=== PATIENT | female | born 1940 | race Caucasian/White ===

== ENCOUNTER 2017-01-31 13:07 | Emergency (ER) | payer MEDICARE, BC ==
--- NOTE | 2017-01-31 13:46 | EDM.PDOC ---
ED HPI GENERAL MEDICAL PROBLEM - General Chief Complaint: Gastrointestinal Problem Stated Complaint: Bowel issues Time Seen by Provider: 01/31/17 13:25 Source of Information: Reports: Patient, RN Notes Reviewed History Limitations: Reports: No Limitations - History of Present Illness INITIAL COMMENTS - FREE TEXT/NARRATIVE: 77 year old female presents to the ED with 1 week history of abdominal discomfort, bloating, and "bowel issues." She says she's been having trouble with constipation for the past week. She says it feels like it's hard to pass her stools. When she has a bowel movement, she describes it as "pencil like" and describes thin, skinny stool. The stool is brown in color. She denies bloody stools or black, tarry stools. She denies history of recurrent constipation. Her appetite is adequate but today she developed some mild nausea. No vomiting. No fever or chills. She feels bloated. She denies urinary symptoms but says she feels "pressure" on her bladder. She had a colonoscopy approximately 10 years ago and says it was normal. Abdominal Pain Score (Numeric/FACES): 6 - Related Data Allergies Allergy/AdvReac Type Severity Reaction Status Date / Time atorvastatin calcium Allergy Unknown unknown Verified 01/31/17 13:21 [From Lipitor] hydromorphone HCl Allergy Unknown unknown Verified 01/31/17 13:21 [From Dilaudid] iodine Allergy Unknown unknown Verified 01/31/17 13:21 meperidine HCl [From Demerol] Allergy Unknown unknown Verified 01/31/17 13:21 Home Meds: Home Meds Aspirin 81 mg PO DAILY 08/15/13 [History] Calcium Carbonate/Vitamin D3 [Calcium 600 + Vit D 400] 1,200 mg PO DAILY [History] Clopidogrel [Plavix] 75 mg PO DAILY 08/15/13 [History] Ezetimibe/Simvastatin [Vytorin 10-80 MG] 10 - 80 mg PO DAILY 08/15/13 [History] Glimepiride [Amaryl] 4 mg PO DAILY 08/15/13 [History] Insulin Detemir [Levemir Flexpen] 20 unit SQ BID 08/15/13 [History] Isosorbide Mononitrate [Imdur] 30 mg PO DAILY 08/15/13 [History] Lutein/Minerals/Vit A,C & E [Ocuvite] 1 tab PO DAILY 08/15/13 [History] Metoprolol Tartrate [Lopressor] 100 mg PO Q12HR 08/15/13 [History] Niacin 1 gm PO DAILY 08/15/13 [History] Nitroglycerin [Nitroquick] 0.4 mg SL ASDIRECTED PRN 08/15/13 [History] [place]-3 Fatty Acids [[place]-3] 2,000 mg PO DAILY 08/15/13 [History] Trolamine Salicylate/Aloe Vera [Aspercreme 10%] 85 gm TP TID PRN 08/15/13 [ History] Ubidecarenone [Co Q-10] 500 mg PO DAILY 09/29/13 [History] Past Medical History HEENT History: Reports: Cataract Cardiovascular History: Reports: High Cholesterol, Hypertension, [place], Stents Other Cardiovascular History: stents x4 Gastrointestinal History: Reports: GERD Genitourinary History: Reports: Chronic Renal Insuffiency Musculoskeletal History: Reports: Gout, Osteoarthritis Endocrine/Metabolic History: Reports: Diabetes, Type II - Past Surgical History HEENT Surgical History: Reports: Cataract Surgery Cardiovascular Surgical History: Reports: Coronary Artery Bypass, Coronary Artery Stent Female Surgical History: Reports: Breast Biopsy, Oophorectomy Social & Family History - Family History Musculoskeletal: Reports: RA - Tobacco Use Smoking Status *Q: Former Smoker (Quit 1998 of 1 ppd) Years of Tobacco use: 30 Used Tobacco, but Quit: Yes Month Tobacco Last Used: 1998 Second Hand Smoke Exposure: No - Recreational Drug Use Recreational Drug Use: No - Living Situation & Occupation Living situation: Reports: Alone ED ROS GENERAL - Review of Systems Review Of Systems: See Below Constitutional: Reports: No Symptoms. Denies: Fever, Chills, Diaphoresis Respiratory: Reports: No Symptoms. Denies: Shortness of Breath Cardiovascular: Reports: No Symptoms. Denies: Chest Pain GI/Abdominal: Reports: Constipation, Distension, Nausea. Denies: Abdominal Pain , Anorexia, Black Stool, Bloody Stool, Diarrhea, Melena, Vomiting : Reports: No Symptoms. Denies: Dysuria, Flank Pain, Frequency, Urgency ED EXAM, GI/ABD - Physical Exam Exam: See Below Exam Limited By: No Limitations General Appearance: Alert, No Apparent Distress, Obese Respiratory/Chest: No Respiratory Distress, Lungs Clear, Normal Breath Sounds Cardiovascular: Regular Rate, Rhythm, No Murmur GI/Abdominal Exam: Non-Tender, No Organomegaly, No Abnormal Bruit, No Mass, Distended, Other (Hyperactive bowel sounds ). No: Guarding, Rigid, Rebound Back Exam: Normal Inspection, Full Range of Motion. No: CVA Tenderness (L), CVA Tenderness (R) Neurological: Alert, Oriented, Normal Cognition Skin Exam: Warm, Dry, Intact Course - Vital Signs Last Recorded V/S: Last Vital Signs Temp 96.8 F 01/31/17 13:21 Pulse 74 01/31/17 16:20 Resp 16 01/31/17 16:20 BP 168/86 H 01/31/17 16:20 Pulse Ox 97 01/31/17 16:20 - Orders/Labs/Meds Labs: Laboratory Tests 01/31/17 01/31/17 01/31/17 Range/Units 13:55 13:55 14:20 WBC 5.49 (3.98-10.04) K/mm3 RBC 4.24 (3.98-5.22) M/mm3 Hgb 12.8 (11.2-15.7) gm/L Hct 39.3 (34.1-44.9) % MCV 92.7 (79.4-94.8) fl MCH 30.2 (25.6-32.2) pg MCHC 32.6 (32.2-35.5) g/dl RDW Std Deviation 49.9 H (36.4-46.3) fL Plt Count 220 (182-369) K/mm3 MPV 9.8 (9.4-12.3) fl Neutrophils % (Manual) 74 H (40-60) % Band Neutrophils % 0 (0-10) % Lymphocytes % (Manual) 21 (20-40) % Atypical Lymphs % 0 % Monocytes % (Manual) 2 (2-10) % Eosinophils % (Manual) 3 (0.7-5.8) % Basophils % (Manual) 0 L (0.1-1.2) Platelet Estimate Adequate RBC Morph Comment Normal Sodium 135 L (136-145) mEq/L Potassium 5.3 H (3.5-5.1) mEq/L Chloride 102 (98-107) mEq/L Carbon Dioxide 23 (21-32) mEq/L Anion Gap 15.3 H (5-15) BUN 33 H (7-18) mg/dL Creatinine 2.0 H (0.55-1.02) mg/dL Est Cr Clr Drug Dosing 20.02 mL/min Estimated GFR (MDRD) 24 (>60) mL/min BUN/Creatinine Ratio 16.5 (14-18) Glucose 137 H (83-115) mg/dL Calcium 9.1 (8.5-10.1) mg/dL Total Bilirubin 0.4 (0.2-1.0) mg/dL AST 16 (15-37) U/L ALT 18 (14-59) U/L Alkaline Phosphatase 93 (46-116) U/L C-Reactive Protein 0.6 (<1.0) mg/dL Total Protein 7.4 (6.4-8.2) g/dl Albumin 3.4 (3.4-5.0) g/dl Globulin 4.0 gm/dL Albumin/Globulin Ratio 0.9 L (1-2) Urine Color Light yellow (Yellow) Urine Appearance Clear (Clear) Urine pH 6.0 (5.0-8.0) Ur Specific [place] 1.015 (1.005-1.030) Urine Protein 1+ H (Negative) Urine Glucose (UA) Negative (Negative) Urine Ketones Negative (Negative) Urine Occult Blood Trace-lysed H (Negative) Urine Nitrite Negative (Negative) Urine Bilirubin Negative (Negative) Urine Urobilinogen 0.2 (0.2-1.0) Ur Leukocyte Esterase Negative (Negative) Urine RBC 0-5 (0-5) /hpf Urine WBC 0-5 (0-5) /hpf Ur Epithelial Cells 0-5 (0-5) /hpf Urine Bacteria Occasional (FEW) /hpf Urine Mucus Few (FEW) /hpf Meds: Medications Discontinued Medications Generic Name Dose Route Start Last Admin Trade Name Freq PRN Reason Stop Dose Admin Diatrizoate Meglum/Diatrizoate Sod 90 ml 01/31/17 15:08 01/31/17 15:18 Gastrografin 37% PO 01/31/17 15:09 90 ml ONETIME ONE Administration - Re-Assessments/Exams Free Text/Narrative Re-Assessment/Exam: CBC is normal. CMP reveals Na 5, K 5.3, anion gap 15, BUN 33, creatinine 2.0, glucose 137. CRP is normal. UA is negative for infection. CT of abdomen/pelvis with ora contrast read by Dr. Lemus. Impression: 1. 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 2. Other incidental findings. Nothing acute is identified. The cause of the patient's symptoms is unclear. She was educated on dietary modifications to keep bowels soft. She would benefit from a colonoscopy to further evaluate for the cause of her symptoms. Discharge instructions as documented. Departure - Departure Time of Disposition: 16:03 Disposition: Home, Self-Care 01 Condition: Good Clinical Impression: Bloating - Discharge Information Referrals: Joce Salguero MD [Primary Care Provider] - Forms: ED Department Discharge Additional Instructions: Miralax 1 capful twice daily to keep bowels soft Drink 80 oz of water per day Follow-up with Dr. Salguero for recheck next week and to discuss need for colonoscopy Return to ER with any new or worsening symptoms
[2017-01-31] MEDS ORDERED: Diatrizoate Meglumine/Diatrizoate Sodium 37% 120 ML Bottle PO ONE (15:08)
--- NOTE | 2017-01-31 15:46 | CT ---
CT abdomen and pelvis Technique: Multiple axial sections were obtained from above the dome of the diaphragm inferiorly through the pubic symphysis. No intravenous contrast was utilized. Oral contrast has been given. Comparison: Previous CT abdomen and pelvis exam dated 07/20/14. Findings: Diffuse ectasia is identified within the lower thoracic aorta as well as within the upper and mid abdominal aorta having an AP dimension of approximately 2.9 cm. This ectasia has slightly increased in size from prior exam at which time it measured around 2.2-2.6 cm. Visualized lung bases shows nothing acute. Noncontrast appearance of the liver and spleen are within normal limits. Surgical clips are seen from prior cholecystectomy. Adrenal glands show no nodule. Moderately large hiatal hernia is seen. Kidney show areas of scarring without hydronephrosis. Pancreas is within normal limits. No retroperitoneal adenopathy or mesenteric abnormalities are seen. Appendix is not visualized. No pelvic mass or adenopathy is seen. No free fluid or inflammatory change is identified. Bone window settings were reviewed which shows disc space narrowing at L1-L2 and L2-3 which is severe showing vacuum phenomena. Lesser disc space narrowing at L3-L4 with vacuum phenomena. Impression: 1. 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 2. Other incidental findings. Nothing acute is identified. Diagnostic code #3
[2017-01-31 16:29] VITALS: BP 168/86
== END 2017-01-31 16:20 | disposition home or self-care (01) ==
LOC: JD.ED 13:07
DX: R14.0 Abdominal distension (gaseous) (principal); E78.00 Pure hypercholesterolemia, unspecified; I25.2 Old myocardial infarction; K21.9 Gastro-esophageal reflux disease without esophagitis; M19.90 Unspecified osteoarthritis, unspecified site; E11.22 Type 2 diabetes mellitus with diabetic chronic kidney disease; I12.9 Hypertensive chronic kidney disease with stage 1 through stage 4 chronic kidney disease, or unspecified chronic kidney disease; N18.9 Chronic kidney disease, unspecified; Z98.49 Cataract extraction status, unspecified eye; Z95.1 Presence of aortocoronary bypass graft; Z88.8 Allergy status to other drugs, medicaments and biological substances; Z79.82 Long term (current) use of aspirin; Z79.4 Long term (current) use of insulin; Z87.891 Personal history of nicotine dependence
CPT/HCPCS: 36415; 74176; 80053; 81001; 85025; 86140; 99284; Q9963; 99283

== ENCOUNTER 2017-02-28 18:33 | Emergency (ER) | payer MEDICARE, BC ==
[2017-02-28 18:47] VITALS: BP 203/89
--- NOTE | 2017-02-28 19:25 | EDM.PDOC ---
ED HPI GENERAL MEDICAL PROBLEM - General Chief Complaint: Abdominal Pain Stated Complaint: BOWEL LEAK AND ABDOMINAL PAIN Time Seen by Provider: 02/28/17 18:54 Source of Information: Reports: Patient, RN Notes Reviewed - History of Present Illness INITIAL COMMENTS - FREE TEXT/NARRATIVE: 77-year-old female comes in with complaint of constipation, generalized abdominal discomfort. She has been having difficulty with constipation for 2 or 3 weeks. She did see a provider over at the clinic, was started on MiraLAX and Metamucil. Was about 10 days ago. She states symptoms have actually "gotten worse". Has not had a decent bowel movement now for about for 5 days just a very small amount the last day or 2. She does feel rectal burning and pressure. Appetite is diminished. She's had some nausea and even a very small amount of vomiting earlier today. No fever or chills. No chest pain or difficulty breathing. Treatments WAREHOUSE ADMINISTRATOR: Reports: Other (see below) Other Treatments WAREHOUSE ADMINISTRATOR: suppositories Lower Abdomen Pain Score (Numeric/FACES): 7 - Related Data Allergies Allergy/AdvReac Type Severity Reaction Status Date / Time atorvastatin calcium Allergy Unknown unknown Verified 02/28/17 18:47 [From Lipitor] hydromorphone HCl Allergy Unknown unknown Verified 02/28/17 18:47 [From Dilaudid] iodine Allergy Unknown unknown Verified 02/28/17 18:47 meperidine HCl [From Demerol] Allergy Unknown unknown Verified 02/28/17 18:47 Home Meds: Home Meds Aspirin 81 mg PO DAILY 08/15/13 [History] Calcium Carbonate/Vitamin D3 [Calcium 600 + Vit D 400] 1,200 mg PO DAILY [History] Clopidogrel [Plavix] 75 mg PO DAILY 08/15/13 [History] Ezetimibe/Simvastatin [Vytorin 10-80 MG] 10 - 80 mg PO DAILY 08/15/13 [History] Glimepiride [Amaryl] 4 mg PO DAILY 08/15/13 [History] Insulin Detemir [Levemir Flexpen] 20 unit SQ BID 08/15/13 [History] Isosorbide Mononitrate [Imdur] 30 mg PO DAILY 08/15/13 [History] Lutein/Minerals/Vit A,C & E [Ocuvite] 1 tab PO DAILY 08/15/13 [History] Metoprolol Tartrate [Lopressor] 200 mg PO Q12HR 08/15/13 [History] Niacin 1 gm PO DAILY 08/15/13 [History] Nitroglycerin [Nitroquick] 0.4 mg SL ASDIRECTED PRN 08/15/13 [History] [place]-3 Fatty Acids [[place]-3] 2,000 mg PO DAILY 08/15/13 [History] Ubidecarenone [Co Q-10] 500 mg PO DAILY 09/29/13 [History] Ondansetron [Zofran ODT] 4 mg PO Q8H PRN #7 tab.dis 02/28/17 [Rx] Past Medical History HEENT History: Reports: Cataract Other HEENT History: wears eyeglasses Cardiovascular History: Reports: High Cholesterol, Hypertension, [place], Stents Other Cardiovascular History: stents x4 Respiratory History: Reports: PE Gastrointestinal History: Reports: GERD Genitourinary History: Reports: Chronic Renal Insuffiency [employer]URNITURE History: Reports: Musculoskeletal History: Reports: Gout, Osteoarthritis Endocrine/Metabolic History: Reports: Diabetes, Type II Hematologic History: Reports: Iron Deficiency, Other (See Below) Other Hematologic History: iron transfusions Dermatologic History: Reports: Psoriasis - Infectious Disease History Infectious Disease History: Reports: Chicken Pox - Past Surgical History HEENT Surgical History: Reports: Cataract Surgery Cardiovascular Surgical History: Reports: Coronary Artery Bypass, Coronary Artery Stent Female Surgical History: Reports: Breast Biopsy, Oophorectomy Social & Family History - Family History Musculoskeletal: Reports: RA - Tobacco Use Smoking Status *Q: Former Smoker Years of Tobacco use: 20 Packs/Tins Daily: 0.5 Used Tobacco, but Quit: Yes Month Tobacco Last Used: 1 Second Hand Smoke Exposure: No - Caffeine Use Caffeine Use: Reports: Coffee - Recreational Drug Use Recreational Drug Use: No - Living Situation & Occupation Living situation: Reports: Alone ED ROS GENERAL - Review of Systems Review Of Systems: See Below Constitutional: Denies: Fever, Chills, Diaphoresis HEENT: Denies: Throat Pain Respiratory: Denies: Shortness of Breath Cardiovascular: Denies: Chest Pain GI/Abdominal: Reports: Abdominal Pain, Constipation, Nausea, Vomiting. Denies: Diarrhea, Hematochezia, Melena Musculoskeletal: Reports: No Symptoms Skin: Reports: No Symptoms Neurological: Reports: No Symptoms ED EXAM, GI/ABD - Physical Exam Exam: See Below General Appearance: Alert, No Apparent Distress Throat/Mouth: Normal Inspection Head: No: Facial Swelling Neck: Supple, Full Range of Motion Respiratory/Chest: No Respiratory Distress GI/Abdominal Exam: Soft, Tender (Very mild diffuse tenderness, no guarding or rebound) Rectal (Female) Exam: Tenderness. No: Hemorrhoids, Mass, Rectal Fissure Extremities: Normal Inspection. No: Pedal Edema, Leg Pain Neurological: Alert, Oriented, No Motor/Sensory Deficits Skin Exam: Dry, Normal Color Course - Vital Signs Last Recorded V/S: Last Vital Signs Temp 97.5 F 02/28/17 18:45 Pulse 76 02/28/17 18:45 Resp 18 02/28/17 18:45 BP 203/89 H 02/28/17 18:45 Pulse Ox 97 02/28/17 18:45 - Orders/Labs/Meds Orders: Active Orders 24 hr Category Date Time Status Abdomen 2V AP Flat Upright [CR] Stat Exams 02/28/17 19:18 Taken Sodium Chloride 0.9% [Normal Saline] 1,000 ml Med 02/28/17 21:00 Active IV ONETIME Medication Orders Sodium Chloride (Normal Saline) 1,000 mls @ 999 mls/hr IV ONETIME LI Last Admin: 02/28/17 21:10 Dose: 999 mls/hr Labs: Laboratory Tests 02/28/17 02/28/17 Range/Units 19:15 19:15 WBC 5.62 (3.98-10.04) K/mm3 RBC 4.21 (3.98-5.22) M/mm3 Hgb 13.0 (11.2-15.7) gm/L Hct 38.8 (34.1-44.9) % MCV 92.2 (79.4-94.8) fl MCH 30.9 (25.6-32.2) pg MCHC 33.5 (32.2-35.5) g/dl RDW Std Deviation 49.1 H (36.4-46.3) fL Plt Count 215 (182-369) K/mm3 MPV 10.1 (9.4-12.3) fl Neut % (Auto) 57.1 (34.0-71.1) % Lymph % (Auto) 31.9 (19.3-51.7) % [place] % (Auto) 7.8 (4.7-12.5) % Eos % (Auto) 2.3 (0.7-5.8) Baso % (Auto) 0.4 (0.1-1.2) % Neut # (Auto) 3.21 (1.56-6.13) K/mm3 Lymph # (Auto) 1.79 (1.18-3.74) K/mm3 [place] # (Auto) 0.44 H (0.24-0.36) K/mm3 Eos # (Auto) 0.13 (0.04-0.36) K/mm3 Baso # (Auto) 0.02 (0.01-0.08) K/mm3 Sodium 132 L (136-145) mEq/L Potassium 4.7 (3.5-5.1) mEq/L Chloride 97 L (98-107) mEq/L Carbon Dioxide 24 (21-32) mEq/L Anion Gap 15.7 H (5-15) BUN 33 H (7-18) mg/dL Creatinine 2.1 H (0.55-1.02) mg/dL Est Cr Clr Drug Dosing 20.67 mL/min Estimated GFR (MDRD) 23 (>60) mL/min BUN/Creatinine Ratio 15.7 (14-18) Glucose 122 H (83-115) mg/dL Calcium 9.1 (8.5-10.1) mg/dL Total Bilirubin 0.4 (0.2-1.0) mg/dL AST 16 (15-37) U/L ALT 18 (14-59) U/L Alkaline Phosphatase 91 (46-116) U/L Total Protein 7.5 (6.4-8.2) g/dl Albumin 3.6 (3.4-5.0) g/dl Globulin 3.9 gm/dL Albumin/Globulin Ratio 0.9 L (1-2) Meds: Medications Generic Name Dose Route Start Last Admin Trade Name Freq PRN Reason Stop Dose Admin Sodium Chloride 1,000 mls @ 999 mls/hr 02/28/17 21:00 02/28/17 21:10 Normal Saline IV 999 mls/hr ONETIME LI Administration Discontinued Medications Generic Name Dose Route Start Last Admin Trade Name Freq PRN Reason Stop Dose Admin Ondansetron HCl 4 mg 02/28/17 20:53 02/28/17 21:13 Zofran IVPUSH 02/28/17 20:54 4 mg ONETIME ONE Administration - Re-Assessments/Exams Free Text/Narrative Re-Assessment/Exam: 02/28/17 21:52 Patient is diabetic, does have history of renal insufficiency, has not been eating and drinking real well the last 2 or 3 days. Labs show that she is somewhat dehydrated, baseline creatinine runs about 1.8, 2.1 today. Therefore we are going to give her 1 L of saline before sending her home. Departure - Departure Time of Disposition: 22:15 Disposition: Home, Self-Care 01 Condition: Fair Clinical Impression: Dehydration, Renal insufficiency Constipation Qualifiers: Constipation type: slow transit constipation Qualified Code(s): K59.01 - Slow transit constipation - Discharge Information Prescriptions: Ondansetron [Zofran ODT] 4 mg PO Q8H PRN #7 tab.dis PRN Reason: Nausea/Vomiting Referrals: Joce Salguero MD [Primary Care Provider] - Forms: ED Department Discharge Additional Instructions: Zofran if needed for any further nausea or vomiting, drink plenty of water, continue high-fiber diet as tolerated, continue Metamucil twice daily, increase MiraLAX to twice daily as needed, try eat some prunes or drink some prune juice at least once or twice daily, follow-up clinic as planned, return to ED as needed if symptoms worsening in any way - My Orders Last 24 Hours: My Active Orders 02/28/17 19:18 Abdomen 2V AP Flat Upright [CR] Stat 02/28/17 21:00 Sodium Chloride 0.9% [Normal Saline] 1,000 ml IV ONETIME - Assessment/Plan Last 24 Hours: My Active Orders 02/28/17 19:18 Abdomen 2V AP Flat Upright [CR] Stat 02/28/17 21:00 Sodium Chloride 0.9% [Normal Saline] 1,000 ml IV ONETIME
[2017-02-28] MEDS ORDERED: Ondansetron 4 MG/2 ML SDV IVPUSH ONE (20:53)
[2017-02-28] MEDS ORDERED: Sodium Chloride 0.9% 1,000 ML IV SCH (21:00)
--- NOTE | 2017-03-01 06:38 | CR ---
Abdomen: Supine and upright views of the abdomen were obtained. Comparison: No previous abdominal x-ray, previous CT abdomen and pelvis exam of 01/31/17 is available. Findings: Surgical clips are seen within the upper right abdomen from previous cholecystectomy. Degenerative change and minimal scoliosis is scattered within the spine. Bowel gas pattern appears normal. No abnormal calcifications or discrete soft tissue abnormality is seen. No free air is identified. Impression: 1. Incidental findings. Nothing acute is appreciated on two-view abdominal x-ray. Diagnostic code #2
== END 2017-02-28 22:20 | disposition home or self-care (01) ==
LOC: JD.ED 18:33
DX: K59.01 Slow transit constipation (principal); E86.0 Dehydration; I12.9 Hypertensive chronic kidney disease with stage 1 through stage 4 chronic kidney disease, or unspecified chronic kidney disease; N18.9 Chronic kidney disease, unspecified; Z88.8 Allergy status to other drugs, medicaments and biological substances; E11.9 Type 2 diabetes mellitus without complications; Z88.5 Allergy status to narcotic agent; Z79.899 Other long term (current) drug therapy; E78.00 Pure hypercholesterolemia, unspecified; I25.2 Old myocardial infarction; Z95.5 Presence of coronary angioplasty implant and graft; K21.9 Gastro-esophageal reflux disease without esophagitis; Z79.4 Long term (current) use of insulin; Z87.891 Personal history of nicotine dependence; Z79.82 Long term (current) use of aspirin
CPT/HCPCS: 36415; 74020; 80053; 85025; 96361; 96374; 99284; J2405; J7040

== ENCOUNTER 2017-04-14 07:52 | Day surgery (SDC) | payer MEDICARE, BC ==
[~2017-04-14 07:52] MED LIST: Lactated Ringers 1,000 ML IV SCH; Lidocaine 1%/Sod Bicarbonate in NS 8.4% 1 ML Syringe IV PRN; Sodium Chloride 0.9% 10 ML Syringe FLUSH PRN; cefOXitin 2 GM in Premix Bag 1 BAG IV ONE
[2017-04-14] MEDS ORDERED: Propofol 200 MG/20 ML SDV ONE (08:35)
--- NOTE | 2017-04-14 09:42 | PCM.PREANE ---
Preanesthetic Assessment - Procedure Proposed Procedure: Diagnostic Colonoscopy - Anesthesia/Transfusion/Family Hx Anesthesia History: Prior Anesthesia Reaction Type of Anesthesia Reaction: Excessive Nausea/Vomiting Family History of Anesthesia Reaction: No Transfusion History: Unknown Intubation History: Unknown - Review of Systems General: No Symptoms Pulmonary: No Symptoms Cardiovascular: No Symptoms Gastrointestinal: Other (GERD) Neurological: No Symptoms Other: Reports: Easy Bruising (History of blood clots), Diabetes - Physical Assessment NPO Status Date: 04/14/17 NPO Status Time: 06:30 O2 Sat by Pulse Oximetry: 96 Respiratory Rate: 16 Vital Signs: Last Vital Signs Temp 36.6 C 04/14/17 08:00 Pulse 73 04/14/17 08:00 Resp 16 04/14/17 08:00 BP 158/73 H 04/14/17 08:00 Pulse Ox 96 04/14/17 08:00 Height: 1.63 m Weight: 95.708 kg ASA Class: 3 Mental Status: Alert & Oriented x3 Airway Class: Mallampati = 1 Dentition: Reports: Normal Dentition Thyro-Mental Finger Breadths: 3 Mouth Opening Finger Breadths: 3 ROM/Head Extension: Full Lungs: Clear to Auscultation, Normal Respiratory Effort Cardiovascular: Regular Rate, Regular Rhythm - Lab Values: Laboratory Last Values POC Glucose 183 mg/dL (83-110) H 04/14/17 08:23 - Allergies Allergies/Adverse Reactions: Allergies Allergy/AdvReac Type Severity Reaction Status Date / Time atorvastatin calcium Allergy Unknown Muscles Verified 04/14/17 08:56 [From Lipitor] Aches hydromorphone HCl Allergy Unknown Nausea and Verified 04/14/17 08:56 [From Dilaudid] Vomiting iodine Allergy Unknown unknown Verified 04/13/17 16:13 meperidine HCl [From Demerol] Allergy Unknown Nausea and Verified 04/14/17 08:56 Vomiting latex Allergy Rash, Verified 04/14/17 08:56 Blisters and Skin Sensitivities - Anesthesia Plan Beta Adalberto: Metoprolol Med Last Dose Date: 04/14/17 Med Last Dose Time: 06:30 - Acknowledgements Anesthesia Type Planned: MAC Pt an Appropriate Candidate for the Planned Anesthesia: Yes Alternatives and Risks of Anesthesia Discussed w Pt/Guardian: Yes Pt/Guardian Understands and Agrees with Anesthesia Plan: Yes PreAnesthesia Questionnaire HEENT History: Reports: Cataract, Impaired Vision Other HEENT History: wears eyeglasses Cardiovascular History: Reports: Blood Clots/VTE/DVT, CAD, High Cholesterol, Hypertension, [place], Stents Other Cardiovascular History: stents x4, CABG Respiratory History: Reports: PE, Sleep Apnea Gastrointestinal History: Reports: GERD Genitourinary History: Reports: Chronic Renal Insuffiency 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: , Other (See Below) Other OB/BYN History: vulvular lesion Musculoskeletal History: Reports: Gout, Osteoarthritis Neurological History: Reports: None Psychiatric History: Reports: None Endocrine/Metabolic History: Reports: Diabetes, Type II Hematologic History: Reports: Iron Deficiency, Other (See Below) Other Hematologic History: iron transfusions Immunologic History: Reports: None Oncologic (Cancer) History: Reports: None Dermatologic History: Reports: Psoriasis - Infectious Disease History Infectious Disease History: Reports: Chicken Pox - Past Surgical History Head Surgeries/Procedures: Reports: None HEENT Surgical History: Reports: Cataract Surgery Other HEENT Surgeries/Procedures: both eyes had surgery jan 2012, laser surgery 2014 Cardiovascular Surgical History: Reports: Coronary Artery Bypass, Coronary Artery Stent Respiratory Surgical History: Reports: None GI Surgical History: Reports: Appendectomy, Cholecystectomy, Colonoscopy Female Surgical History: Reports: Breast Biopsy, Oophorectomy Other Female Surgeries/Procedures: lumpectomy to L breast Neurological Surgical History: Reports: None Musculoskeletal Surgical History: Reports: None Oncologic Surgical History: Reports: None - SUBSTANCE USE Smoking Status *Q: Former Smoker Tobacco Use Within Last Twelve Months: Cigarettes Second Hand Smoke Exposure: No Recreational Drug Use History: No - HOME MEDS Home Medications: Home Meds Aspirin 81 mg PO DAILY 08/15/13 [History] Calcium Carbonate/Vitamin D3 [Calcium 600 + Vit D 400] 1 mg PO DAILY 08/15/13 [ History] Clopidogrel [Plavix] 75 mg PO DAILY 08/15/13 [History] Insulin Detemir [Levemir Flexpen] 20 unit SQ BID 08/15/13 [History] Isosorbide Mononitrate [Imdur] 30 mg PO DAILY 08/15/13 [History] Lutein/Minerals/Vit A,C & E [Ocuvite] 1 tab PO DAILY 08/15/13 [History] Niacin 1 gm PO DAILY 08/15/13 [History] Nitroglycerin [Nitroquick] 0.4 mg SL Q5M PRN 08/15/13 [History] [place]-3 Fatty Acids [[place]-3] 2,000 mg PO DAILY 08/15/13 [History] Ubidecarenone [Co Q-10] 100 mg PO DAILY 09/29/13 [History] Betamethasone Dipropionate [Diprosone 0.05% Crm] 1 applic TP ASDIRECTED PRN [History] Doxazosin Mesylate [Cardura] 1 mg PO DAILY 04/13/17 [History] Glimepiride [Amaryl] 4 mg PO 1700 04/13/17 [History] Metoprolol Tartrate [Metoprolol Tartrate] 100 mg PO BID 04/13/17 [History] - CURRENT (IN HOUSE) MEDS Current Meds: Current Medications Lactated Ringer's (Ringers, Lactated) 1,000 mls @ 125 mls/hr IV ASDIRECTED LI Stop: 04/14/17 16:00 Last Admin: 04/14/17 08:23 Dose: 125 mls/hr Lidocaine/Sodium Bicarbonate (Buffered Lidocaine 1% In Ns 8.4%) 0.25 ml IV ONETIME PRN PRN Reason: Prior to IV Start Stop: 04/14/17 16:00 Last Admin: 04/14/17 08:20 Dose: 0.25 ml Sodium Chloride (Saline Flush) 10 ml FLUSH ASDIRECTED PRN PRN Reason: Keep Vein Open Stop: 04/14/17 16:00 Discontinued Medications Cefoxitin Sodium 2 gm/ Premix 50 mls @ 100 mls/hr IV ONETIME ONE Stop: 04/14/17 07:45 Last Admin: 04/14/17 09:11 Dose: 100 mls/hr Propofol (Diprivan 20 Ml) Confirm Administered Dose 200 mg .ROUTE .STK-MED ONE Stop: 04/14/17 08:36
--- NOTE | 2017-04-14 10:07 | PCM.OPNOTE ---
- General Post-Op/Procedure Note Date of Surgery/Procedure: 04/14/17 Operative Procedure(s): Colonoscopy with random rectal biopsy Findings: 1. Anal tags The endoscopic examination was otherwise unremarkable except for a slightly spastic sigmoid colon. Pre Op Diagnosis: Change in bowel habits -- constipation Post-Op Diagnosis: 1. Anal tags. 2. Spastic sigmoid colon Anesthesia Technique: MAC, Moderate Sedation Primary Surgeon: Daniel Antonio Pathology: Random rectal biopsy EBL in mLs: 0 Complications: None Condition: Good Free Text/Narrative:: After adequate IV sedation and analgesia was obtained the patient was placed on her left side with monitoring. Perianal inspection revealed the anal tags. Digital rectal examination was unremarkable. A lubricated colonoscope was inserted into the rectum then advanced under direct vision with air insufflation as necessary to the cecum. The bowel preparation was fair there was some particular matter within the cecum. The cecum was otherwise unremarkable grossly for mass lesions or inflammatory changes. The right colon transverse and descending colons were endoscopically normal as well. The sigmoid was slightly tortuous and had some muscular circular hypertrophy. There were no mass lesions in this area. The rectum in both views was unremarkable. Given her history of a change in bowel habits I took a random rectal biopsy for histologic review. Dealer Sales Rep photographs were taken for the patient for the medical record. Air was removed as I finished the procedure. There were no procedural complications.
--- NOTE | 2017-04-14 10:09 | PCM48HPAN ---
Post Anesthesia Note - EVALUATION WITHIN 48HRS OF ANESTHETIC Vital Signs in Normal Range: Yes Patient Participated in Evaluation: Yes Respiratory Function Stable: Yes Airway Patent: Yes Cardiovascular Function Stable: Yes Hydration Status Stable: Yes Pain Control Satisfactory: Yes Nausea and Vomiting Control Satisfactory: Yes Mental Status Recovered: Yes - COMMENTS/OBSERVATIONS Free Text/Narrative:: awake, VSS no c/o rests quietly
[2017-04-14 10:39] VITALS: BP 157/60
== END 2017-04-14 10:55 | disposition home or self-care (01) ==
LOC: JD.SDS 07:52
PROVIDERS: ATTEND Surgery
DX: K64.4 Residual hemorrhoidal skin tags (principal); K56.2 Volvulus; M62.89 Other specified disorders of muscle; I25.10 Atherosclerotic heart disease of native coronary artery without angina pectoris; I10 Essential (primary) hypertension; E11.9 Type 2 diabetes mellitus without complications; K21.9 Gastro-esophageal reflux disease without esophagitis; E78.00 Pure hypercholesterolemia, unspecified; I25.2 Old myocardial infarction; Z87.891 Personal history of nicotine dependence; Z88.8 Allergy status to other drugs, medicaments and biological substances; Z91.040 Latex allergy status; Z79.82 Long term (current) use of aspirin; Z79.899 Other long term (current) drug therapy; Z95.1 Presence of aortocoronary bypass graft; Z90.721 Acquired absence of ovaries, unilateral
CPT/HCPCS: 45380; 82962; J0694; J7120; 00810; 88305; J2704

== ENCOUNTER 2017-09-30 12:17 | Emergency (ER) | payer MEDICARE, BC ==
[2017-09-30 12:26] VITALS: BP 185/88
[2017-09-30] MEDS ORDERED: Sodium Chloride 0.9% 10 ML Syringe FLUSH PRN (12:40)
--- NOTE | 2017-09-30 13:06 | CT ---
Head CT Technique: Multiple axial sections through the brain were obtained. Intravenous contrast was not utilized. Comparison: No previous head CT exam, previous MRI brain dated 10/24/08 is available. Findings: Ventricles along with basal cisterns and sulci the convexities are mildly prominent. Mild diminished density is noted within the periventricular and subcortical white matter compatible with small vessel ischemic demyelination change. 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 No other abnormal parenchymal densities are seen. No evidence of intracranial hemorrhage. No midline shift or mass effect is seen. Bone window settings were reviewed which shows the visualized sinuses to appear clear. No acute calvarial abnormality is seen. Atherosclerotic calcifications are seen within the carotid siphon. Impression: 1. Senescent change as noted above. No acute intracranial abnormality is seen on noncontrast head CT exam. Diagnostic code #2
--- NOTE | 2017-09-30 14:59 | EDM.PDOC ---
ED HPI GENERAL MEDICAL PROBLEM - General Chief Complaint: General Stated Complaint: [facility] Time Seen by Provider: 09/30/17 12:22 Source of Information: Reports: Patient, EMS History Limitations: Reports: No Limitations - History of Present Illness INITIAL COMMENTS - FREE TEXT/NARRATIVE: The patient presents by [facility]. The patient was picking up her sister at [employer] to go out to eat and she was helping her get into the car when she got dizzy like she was spinning. This happened again when she went to the refuse driver's side. She has nausea and she vomited. She could not drive so she called 911. She has no headache, chest pain, shortness of breath, abdominal pain, numbness or weakness. She says this has happened before in 1999 and 2008. She feels better now. Onset: Sudden Duration: Minutes: Severity: Severe Improves with: Reports: Immobilization Worsens with: Reports: Movement Associated Symptoms: Reports: Nausea/Vomiting. Denies: Chest Pain, Fever/Chills , Headaches, Loss of Appetite, Shortness of Breath - Related Data Allergies Allergy/AdvReac Type Severity Reaction Status Date / Time iodine Allergy Unknown unknown Verified 09/30/17 12:22 latex Allergy Rash, Verified 09/30/17 12:22 Blisters and Skin Sensitivities atorvastatin calcium AdvReac Unknown Muscles Verified 09/30/17 12:22 [From Lipitor] Aches hydromorphone HCl AdvReac Unknown Nausea and Verified 09/30/17 12:22 [From Dilaudid] Vomiting meperidine HCl [From Demerol] AdvReac Unknown Nausea and Verified 09/30/17 12:22 Vomiting Home Meds: Home Meds Calcium Carbonate/Vitamin D3 [Calcium 600 + Vit D 400] 1 mg PO DAILY 08/15/13 [ History] Clopidogrel [Plavix] 75 mg PO DAILY 08/15/13 [History] Insulin Detemir [Levemir Flexpen] 20 unit SQ BID 08/15/13 [History] Isosorbide Mononitrate [Imdur] 30 mg PO DAILY 08/15/13 [History] Lutein/Minerals/Vit A,C & E [Ocuvite] 1 tab PO DAILY 08/15/13 [History] Niacin 1 gm PO DAILY 08/15/13 [History] Nitroglycerin [Nitroquick] 0.4 mg SL Q5M PRN 08/15/13 [History] [place]-3 Fatty Acids [[place]-3] 2,000 mg PO DAILY 08/15/13 [History] Ubidecarenone [Co Q-10] 100 mg PO DAILY 09/29/13 [History] Doxazosin Mesylate [Cardura] 1 mg PO DAILY 04/13/17 [History] Glimepiride [Amaryl] 4 mg PO 1700 04/13/17 [History] Metoprolol Tartrate 100 mg PO BID 04/13/17 [History] Past Medical History HEENT History: Reports: Cataract, Impaired Vision Other HEENT History: wears eyeglasses Cardiovascular History: Reports: Blood Clots/VTE/DVT, CAD, High Cholesterol, Hypertension, [place], Stents Other Cardiovascular History: stents x4, CABG Respiratory History: Reports: PE, Sleep Apnea Gastrointestinal History: Reports: GERD Genitourinary History: Reports: Chronic Renal Insuffiency 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: , 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 (See Below) Other OB/BYN History: vulvular lesion Musculoskeletal History: Reports: Gout, Osteoarthritis Neurological History: Reports: None Psychiatric History: Reports: None Endocrine/Metabolic History: Reports: Diabetes, Type II Hematologic History: Reports: Iron Deficiency, Other (See Below) Other Hematologic History: iron transfusions Immunologic History: Reports: None Oncologic (Cancer) History: Reports: None Dermatologic History: Reports: Psoriasis - Infectious Disease History Infectious Disease History: Reports: Chicken Pox - Past Surgical History Head Surgeries/Procedures: Reports: None HEENT Surgical History: Reports: Cataract Surgery Other HEENT Surgeries/Procedures: both eyes had surgery jan 2012, laser surgery 2014 Cardiovascular Surgical History: Reports: Coronary Artery Bypass, Coronary Artery Stent Respiratory Surgical History: Reports: None GI Surgical History: Reports: Appendectomy, Cholecystectomy, Colonoscopy Female Surgical History: Reports: Breast Biopsy, Oophorectomy Other Female Surgeries/Procedures: lumpectomy to L breast Neurological Surgical History: Reports: None Musculoskeletal Surgical History: Reports: None Oncologic Surgical History: Reports: None Social & Family History - Family History Musculoskeletal: Reports: RA - Tobacco Use Smoking Status *Q: Never Smoker Second Hand Smoke Exposure: No - Caffeine Use Caffeine Use: Reports: Coffee - Recreational Drug Use Recreational Drug Use: No - Living Situation & Occupation Living situation: Reports: Alone ED ROS GENERAL - Review of Systems Review Of Systems: See Below Constitutional: Reports: No Symptoms HEENT: Reports: No Symptoms Respiratory: Reports: No Symptoms Cardiovascular: Reports: No Symptoms Endocrine: Reports: No Symptoms GI/Abdominal: Reports: Nausea, Vomiting. Denies: Abdominal Pain : Reports: No Symptoms Musculoskeletal: Reports: No Symptoms Skin: Reports: No Symptoms Neurological: Reports: Dizziness ED EXAM, GENERAL - Physical Exam Exam: See Below Exam Limited By: No Limitations General Appearance: Alert, No Apparent Distress Eye Exam: Bilateral Eye: EOMI, PERRL Ears: Normal External Exam Nose: Normal Inspection Head: Atraumatic, Normocephalic Neck: Normal Inspection Respiratory/Chest: No Respiratory Distress, Lungs Clear, Normal Breath Sounds Cardiovascular: Regular Rate, Rhythm, No Edema, No Murmur GI/Abdominal: Soft, Non-Tender, No Organomegaly, No Mass Back Exam: Normal Inspection Extremities: Normal Inspection EKG INTERPRETATION EKG Date: 09/30/17 Time: 13:10 Rhythm: NSR Rate (Beats/Min): 66 [place]: Normal P-Wave: Present QRS: Normal ST-T: Depressed (and flattened T waves) QT: Normal Course - Vital Signs Last Recorded V/S: Last Vital Signs Temp 98.4 F 09/30/17 12:22 Pulse 70 09/30/17 12:22 Resp 12 09/30/17 12:22 BP 185/88 H 09/30/17 12:22 Pulse Ox 100 09/30/17 12:22 - Orders/Labs/Meds Orders: Active Orders 24 hr Category Date Time Status Cardiac Monitoring [RC] . DIRECTED Care 09/30/17 12:40 Active EKG Documentation Completion [RC] STAT Care 09/30/17 12:41 Active Peripheral IV Care [RC] . DIRECTED Care 09/30/17 12:41 Active Sodium Chloride 0.9% [Saline Flush] Med 09/30/17 12:40 Active 10 ml FLUSH ASDIRECTED PRN Peripheral IV Insertion Adult [OM.PC] Stat Oth 09/30/17 12:40 Ordered Medication Orders Sodium Chloride (Saline Flush) 10 ml FLUSH ASDIRECTED PRN PRN Reason: Keep Vein Open Last Admin: 09/30/17 12:48 Dose: 10 ml Labs: Laboratory Tests 09/30/17 09/30/17 Range/Units 13:02 13:02 WBC 4.38 (3.98-10.04) K/mm3 RBC 3.49 L (3.98-5.22) M/mm3 Hgb 12.0 (11.2-15.7) gm/L Hct 36.1 (34.1-44.9) % MCV 103.4 H (79.4-94.8) fl MCH 34.4 H (25.6-32.2) pg MCHC 33.2 (32.2-35.5) g/dl RDW Std Deviation 51.4 H (36.4-46.3) fL Plt Count 191 (182-369) K/mm3 MPV 10.8 (9.4-12.3) fl Neut % (Auto) 61.0 (34.0-71.1) % Lymph % (Auto) 28.3 (19.3-51.7) % [place] % (Auto) 7.8 (4.7-12.5) % Eos % (Auto) 2.7 (0.7-5.8) Baso % (Auto) 0.2 (0.1-1.2) % Neut # (Auto) 2.67 (1.56-6.13) K/mm3 Lymph # (Auto) 1.24 (1.18-3.74) K/mm3 [place] # (Auto) 0.34 (0.24-0.36) K/mm3 Eos # (Auto) 0.12 (0.04-0.36) K/mm3 Baso # (Auto) 0.01 (0.01-0.08) K/mm3 Sodium 135 L (136-145) mEq/L Potassium 5.1 (3.5-5.1) mEq/L Chloride 101 (98-107) mEq/L Carbon Dioxide 24 (21-32) mEq/L Anion Gap 15.1 H (5-15) BUN 45 H (7-18) mg/dL Creatinine 2.2 H (0.55-1.02) mg/dL Est Cr Clr Drug Dosing 18.96 mL/min Estimated GFR (MDRD) 22 (>60) mL/min BUN/Creatinine Ratio 20.5 H (14-18) Glucose 134 H (83-115) mg/dL Calcium 9.5 (8.5-10.1) mg/dL Total Bilirubin 0.6 (0.2-1.0) mg/dL AST 16 (15-37) U/L ALT < 6 L (14-59) U/L Alkaline Phosphatase 82 (46-116) U/L Troponin I < 0.017 (0.00-0.056) ng/mL Total Protein 7.1 (6.4-8.2) g/dl Albumin 3.4 (3.4-5.0) g/dl Globulin 3.7 gm/dL Albumin/Globulin Ratio 0.9 L (1-2) Meds: Medications Generic Name Dose Route Start Last Admin Trade Name Freq PRN Reason Stop Dose Admin Sodium Chloride 10 ml 09/30/17 12:40 09/30/17 12:48 Saline Flush FLUSH 10 ml ASDIRECTED PRN Administration Keep Vein Open Discontinued Medications Generic Name Dose Route Start Last Admin Trade Name Freq PRN Reason Stop Dose Admin Meclizine HCl 25 mg 09/30/17 12:41 09/30/17 12:49 Antivert PO 09/30/17 12:42 25 mg ONETIME ONE Administration - Re-Assessments/Exams Free Text/Narrative Re-Assessment/Exam: 09/30/17 15:01 I ordered an IV NS, antivert, labs, CT of her head, and EKG. Her EKG shows a NSR with some ST depression and T waves flattening. There is no change from prior EKG. 09/30/17 15:03 Her CBC was negative. Her Na was a little low at 135. Her creatinine was elevated at 2.2 with a GFR of 22. 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 Her troponin is negative. The CT of her head shows senescent change and no acute intracranial abnormality is seen on noncontrast head CT exam. She feels better. This is vertigo. I will discharge her home. She is supposed to see Dr Parker but something came up when she had her appointment. She will need to make another appointment. 09/30/17 15:08 Her blood pressure was very high when she came in. That is better now. Departure - Departure Time of Disposition: 15:10 Disposition: Home, Self-Care 01 Condition: Good Clinical Impression: Vertigo, Renal insufficiency Hypertension Qualifiers: Hypertension type: essential hypertension Qualified Code(s): I10 - Essential ( primary) hypertension - Discharge Information Referrals: Joce Salguero MD [Primary Care Provider] - 1 Week () Bam Parker MD [Ordering Only Provider] - 1 Week Additional Instructions: Go home and rest. Take your medication as prescribed. Follow up with Dr Parker. Please return if you are worse. - My Orders Last 24 Hours: My Active Orders 09/30/17 12:40 Cardiac Monitoring [RC] . DIRECTED Sodium Chloride 0.9% [Saline Flush] 10 ml FLUSH ASDIRECTED PRN Peripheral IV Insertion Adult [OM.PC] Stat 09/30/17 12:41 EKG Documentation Completion [RC] STAT Peripheral IV Care [RC] . DIRECTED - Assessment/Plan Last 24 Hours: My Active Orders 09/30/17 12:40 Cardiac Monitoring [RC] . DIRECTED Sodium Chloride 0.9% [Saline Flush] 10 ml FLUSH ASDIRECTED PRN Peripheral IV Insertion Adult [OM.PC] Stat 09/30/17 12:41 EKG Documentation Completion [RC] STAT Peripheral IV Care [RC] . DIRECTED
== END 2017-09-30 15:30 | disposition home or self-care (01) ==
LOC: SUPCPDRO 12:17 → JD.ED 12:17
DX: I12.9 Hypertensive chronic kidney disease with stage 1 through stage 4 chronic kidney disease, or unspecified chronic kidney disease (principal); N18.9 Chronic kidney disease, unspecified; N28.9 Disorder of kidney and ureter, unspecified; R11.2 Nausea with vomiting, unspecified; I25.2 Old myocardial infarction; E11.22 Type 2 diabetes mellitus with diabetic chronic kidney disease; Z88.8 Allergy status to other drugs, medicaments and biological substances; Z88.5 Allergy status to narcotic agent; Z79.899 Other long term (current) drug therapy; Z91.040 Latex allergy status
CPT/HCPCS: 36415; 70450; 80053; 84484; 85025; 93005; 99285; A9270; J7050; 93010; 99284

== ENCOUNTER 2017-11-19 17:10 | Emergency (ER) | payer MEDICARE, BC ==
[2017-11-19 17:34] VITALS: BP 215/85
--- NOTE | 2017-11-19 18:06 | EDM.PDOC ---
ED HPI GENERAL MEDICAL PROBLEM - General Chief Complaint: Cardiovascular Problem Stated Complaint: [facility] Time Seen by Provider: 11/19/17 17:37 Source of Information: Reports: Patient, Old Records History Limitations: Reports: No Limitations - History of Present Illness INITIAL COMMENTS - FREE TEXT/NARRATIVE: The patient states that a neighbor of hers was visiting, when she developed sudden-onset vertigo, while sitting. She states that the vertigo was not motion sensitive, that it persisted, even if she kept her head still. No associated nausea, headache, blurry vision, chest pain, dyspnea, or palpitations. She checked her blood pressure, several times, and found it to be high, which prompted her to come to the ED. She states that the vertigo resolved after about 10 minutes, that she has felt fine ever since. The patient reports that she has had similar symptoms about 5 or 6 times since September 30. She states that she is currently being worked up by Dr. Salguero for this, including a MRI of the brain on 11/16/2017, which was found to be normal. She states that she is going to be referred to ENT for further evaluation. She states that the reason that she came to the ED was because of her blood pressure and encouragement by her neighbor, not the vertigo. - Related Data Allergies Allergy/AdvReac Type Severity Reaction Status Date / Time iodine Allergy Unknown unknown Verified 09/30/17 12:22 latex Allergy Rash, Verified 09/30/17 12:22 Blisters and Skin Sensitivities atorvastatin calcium AdvReac Unknown Muscles Verified 09/30/17 12:22 [From Lipitor] Aches hydromorphone HCl AdvReac Unknown Nausea and Verified 09/30/17 12:22 [From Dilaudid] Vomiting meperidine HCl [From Demerol] AdvReac Unknown Nausea and Verified 09/30/17 12:22 Vomiting Home Meds: Home Meds Calcium Carbonate/Vitamin D3 [Calcium 600 + Vit D 400] 1 mg PO DAILY 08/15/13 [ History] Clopidogrel [Plavix] 75 mg PO DAILY 08/15/13 [History] Insulin Detemir [Levemir Flexpen] 20 unit SQ BID 08/15/13 [History] Isosorbide Mononitrate [Imdur] 30 mg PO DAILY 08/15/13 [History] Lutein/Minerals/Vit A,C & E [Ocuvite] 1 tab PO DAILY 08/15/13 [History] Niacin 1 gm PO DAILY 08/15/13 [History] Nitroglycerin [Nitroquick] 0.4 mg SL Q5M PRN 08/15/13 [History] [place]-3 Fatty Acids [[place]-3] 2,000 mg PO DAILY 08/15/13 [History] Ubidecarenone [Co Q-10] 100 mg PO DAILY 09/29/13 [History] Doxazosin Mesylate [Cardura] 1 mg PO DAILY 04/13/17 [History] Glimepiride [Amaryl] 4 mg PO 1700 04/13/17 [History] Metoprolol Tartrate 100 mg PO BID 04/13/17 [History] Calcitriol [Rocaltrol] 0.25 mcg PO DAILY 11/19/17 [History] Clobetasol Propionate [Temovate 0.05% Oint] 15 gm TP DAILY 11/19/17 [History] Mupirocin [Centany] 1 applic TOP DAILY 11/19/17 [History] Simvastatin [Zocor] 40 mg PO BEDTIME 11/19/17 [History] Triamcinolone Acetonide [Triamcinolone Acetonide 0.025%] 1 applic TOP DAILY 11/01 [History] Past Medical History HEENT History: Reports: Impaired Vision Other HEENT History: wears eyeglasses Cardiovascular History: Reports: CAD, High Cholesterol, Hypertension, [place] Gastrointestinal History: Reports: GERD Genitourinary History: Reports: Chronic Renal Insuffiency 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 BUFFING WHEEL FORMER History: Reports: , Other (See Below) Other HAND BUFFING WHEEL FORMER History: vulvular lesion Musculoskeletal History: Reports: Gout, Osteoarthritis Endocrine/Metabolic History: Reports: Diabetes, Type II Hematologic History: Reports: Iron Deficiency (s/p iron transfusions) Dermatologic History: Reports: Psoriasis - Infectious Disease History Infectious Disease History: Reports: Chicken Pox - Past Surgical History HEENT Surgical History: Reports: Cataract Surgery (Jan 2012), Eye Surgery ( Laser, 2014) Cardiovascular Surgical History: Reports: Coronary Artery Bypass (x 2 vessel, 2003), Coronary Artery Stent (x 3) GI Surgical History: Reports: Appendectomy, Cholecystectomy, Colonoscopy Female Surgical History: Reports: Breast Biopsy (left), Oophorectomy (right) Social & Family History - Family History Musculoskeletal: Reports: RA - Tobacco Use Smoking Status *Q: Former Smoker Years of Tobacco use: 30 Packs/Tins Daily: 1 Month/Year Tobacco Last Used: Quit 1998 Second Hand Smoke Exposure: No - Caffeine Use Caffeine Use: Reports: Coffee - Alcohol Use Alcohol Use History: Yes Alcohol Use Frequency: Socially - Recreational Drug Use Recreational Drug Use: No - Living Situation & Occupation Living situation: Reports: , Alone Occupation: Retired ED ROS GENERAL - Review of Systems Review Of Systems: ROS reveals no pertinent complaints other than HPI. ED EXAM, GENERAL - Physical Exam Exam: See Below Exam Limited By: No Limitations General Appearance: Alert, WD/WN, No Apparent Distress Eye Exam: Bilateral Eye: EOMI, Normal Inspection Ears: Normal External Exam, Hearing Grossly Normal Nose: Normal Inspection, No Blood Throat/Mouth: Normal Inspection, Normal Lips, Normal Voice, No Airway Compromise Head: Atraumatic, Normocephalic Neck: Normal Inspection, Full Range of Motion Respiratory/Chest: No Respiratory Distress, Lungs Clear, Normal Breath Sounds, No Accessory Muscle Use Cardiovascular: Normal Peripheral Pulses, Regular Rate, Rhythm, No Edema, No Gallop, No JVD, No Murmur, No Rub Peripheral Pulses: 4+: Radial (L), Radial (R) GI/Abdominal: Normal Bowel Sounds, Soft, Non-Tender, No Organomegaly, No Distention, No Abnormal Bruit, No Mass, Other (Obese) Rectal (Female) Exam: Deferred Back Exam: Normal Inspection, Full Range of Motion, NT Extremities: Normal Inspection, Normal Range of Motion, No Pedal Edema, Normal Capillary Refill Neurological: Alert, Oriented, Normal Cognition, No Motor/Sensory Deficits Psychiatric: Normal Affect Skin Exam: Warm, Dry, Intact, Normal Color, No Rash EKG INTERPRETATION EKG Date: 11/19/17 Time: 17:20 Rhythm: NSR Rate (Beats/Min): 73 [place]: Normal P-Wave: Present (1st degree AVB) QRS: Normal ST-T: Depressed (Slight ST depression & T-wave inversion lateral leads - present on 09/30/2017 ECG) QT: Normal Comparison: No Change (09/30/2017) Course - Vital Signs Last Recorded V/S: Last Vital Signs Temp 37.2 C 11/19/17 17:27 Pulse 215 H 11/19/17 17:27 Resp 23 H 11/19/17 17:27 BP 215/85 H 11/19/17 17:27 Pulse Ox 99 11/19/17 17:27 Orthostatic Blood Pressure [ 199/71 Standing] Orthostatic Blood Pressure [ 194/67 Supine] - Re-Assessments/Exams Free Text/Narrative Re-Assessment/Exam: 11/19/17 18:05 As above, the patient reports that this is about the 5th or 6th episode of sudden-onset vertigo that persists even if she is not moving her head. Today's episode lasted about 10 minutes, and the patient is now feeling back to normal. Prior workup included a MRI of the brain on 11/16/2017, however, the presence of vertigo without head movement is concerning for a central cause of vertigo, i.e. brainstem vascular insufficiency, as opposed to a peripheral cause, i.e. an inner ear problem. As the patient has a chronic renal insufficiency, with a baseline creatinine around 2.0 to 2.2, I agree that gadolinium contrast for a MRA would be ill-advised, however, the patient is able to have iodinated contrast with a traditional cerebral angiogram to evaluate for posterior circulation insufficiency. She reports that she has an allergic reaction to iodinated contrast, therefore she would require pretreatment, but she has had such pretreatment with subsequent iodinated contrast several times the past with no adverse effects. As this is a chronic/recurrent issue, already being worked up, and the patient is currently feeling back to normal, I don't see any need for any further workup tonight. I will discharge her home. Departure - Departure Time of Disposition: 18:13 Disposition: Home, Self-Care 01 Condition: Fair Clinical Impression: Vertigo Hypertension Qualifiers: Hypertension type: essential hypertension Qualified Code(s): I10 - Essential ( primary) hypertension Instructions: Vertigo, [id number], Hypertension, [id number] Referrals: Joce Salguero MD [Primary Care Provider] - Forms: ED Department Discharge Additional Instructions: You were seen in the emergency room for sudden onset vertigo, associated with elevated blood pressure. As discussed, as this is a recurrent issue, already under workup, and you're feeling back to normal, no further workup is required in the ER. Going forward, we recommend that you seek a cerebral angiogram of your posterior circulation after pretreatment for contrast allergy. Follow-up with your PCP, Dr. Salguero, in this regard. If any other problems, please do not hesitate to return to the ER.
== END 2017-11-19 18:33 | disposition home or self-care (01) ==
LOC: JD.ED 17:10
DX: I12.9 Hypertensive chronic kidney disease with stage 1 through stage 4 chronic kidney disease, or unspecified chronic kidney disease (principal); N18.9 Chronic kidney disease, unspecified; K21.9 Gastro-esophageal reflux disease without esophagitis; E11.22 Type 2 diabetes mellitus with diabetic chronic kidney disease; E78.00 Pure hypercholesterolemia, unspecified; I25.2 Old myocardial infarction; Z91.040 Latex allergy status; Z91.048 Other nonmedicinal substance allergy status; Z88.5 Allergy status to narcotic agent; Z79.899 Other long term (current) drug therapy; Z79.4 Long term (current) use of insulin; Z87.891 Personal history of nicotine dependence
CPT/HCPCS: 99284

== ENCOUNTER 2019-02-14 14:19 | Emergency (ER) | payer MEDICARE, BC ==
[2019-02-14 14:51] VITALS: PULSE 67
--- NOTE | 2019-02-14 17:12 | EDM.PDOC ---
ED HPI GENERAL MEDICAL PROBLEM - General Chief Complaint: Lower Extremity Injury/Pain Stated Complaint: R KNEE PAIN Time Seen by Provider: 02/14/19 14:47 Source of Information: Reports: Patient History Limitations: Reports: No Limitations - History of Present Illness INITIAL COMMENTS - FREE TEXT/NARRATIVE: The patient presents with right knee pain. This started 2 weeks ago. She had a syncopal episode in her kitchen. A box fell and hit her in the medial part of the knee. She can walk on it but she has moderate pain. She saw her doctor and he did an x-ray and that looked good. He has her going to a neurologist tomorrow for further work up for the syncope. Onset: Sudden Duration: Week(s): (2) Location: Reports: Lower Extremity, Right (knee) Quality: Reports: Sharp Severity: Moderate Improves with: Reports: Immobilization Worsens with: Reports: Movement Context: Reports: Trauma (Box fell on her knee) Associated Symptoms: Reports: No Other Symptoms Right Knee Pain Score (Numeric/FACES): 7 - Related Data Allergies Allergy/AdvReac Type Severity Reaction Status Date / Time iodine Allergy Unknown unknown Verified 02/14/19 14:52 latex Allergy Rash, Verified 02/14/19 14:52 Blisters and Skin Sensitivities atorvastatin calcium AdvReac Unknown Muscles Verified 02/14/19 14:52 [From Lipitor] Aches hydromorphone HCl AdvReac Unknown Nausea and Verified 02/14/19 14:52 [From Dilaudid] Vomiting meperidine HCl [From Demerol] AdvReac Unknown Nausea and Verified 02/14/19 14:52 Vomiting Home Meds: Home Meds Calcium Carbonate/Vitamin D3 [Calcium 600 + Vit D 400] 1 mg PO DAILY 08/15/13 [ History] Clopidogrel [Plavix] 75 mg PO DAILY 08/15/13 [History] Insulin Detemir [Levemir Flexpen] 20 unit SQ BID 08/15/13 [History] Isosorbide Mononitrate [Imdur] 30 mg PO DAILY 08/15/13 [History] Lutein/Minerals/Vit A,C & E [Ocuvite] 1 tab PO DAILY 08/15/13 [History] Nitroglycerin [Nitroquick] 0.4 mg SL Q5M PRN 08/15/13 [History] [place]-3 Fatty Acids [[place]-3] 2,000 mg PO DAILY 08/15/13 [History] Ubidecarenone [Co Q-10] 100 mg PO DAILY 09/29/13 [History] Doxazosin Mesylate [Cardura] 1 mg PO DAILY 04/13/17 [History] Glimepiride [Amaryl] 4 mg PO 1700 04/13/17 [History] Metoprolol Tartrate 100 mg PO BID 04/13/17 [History] Calcitriol [Rocaltrol] 0.25 mcg PO DAILY 11/19/17 [History] Clobetasol Propionate [Temovate 0.05% Oint] 15 gm TP DAILY 11/19/17 [History] Simvastatin [Zocor] 40 mg PO BEDTIME 11/19/17 [History] Ezetimibe 10 mg PO DAILY 02/14/19 [History] Niacinamide [Niacin] 500 mg PO BID 02/14/19 [History] Past Medical History HEENT History: Reports: Impaired Vision Other HEENT History: wears eyeglasses Cardiovascular History: Reports: CAD, High Cholesterol, Hypertension, [place] Other Cardiovascular History: stents x4, CABG Respiratory History: Reports: PE, Sleep Apnea Gastrointestinal History: Reports: GERD Genitourinary History: Reports: Chronic Renal Insuffiency [employer] COORDINATOR History: Reports: , Other (See Below) Other COMM[employer] C[employer] COORDINATOR History: vulvular lesion Musculoskeletal History: Reports: Gout, Osteoarthritis Neurological History: Reports: Other (See Below) Other Neuro History: Syncopal Episodes Psychiatric History: Reports: None Endocrine/Metabolic History: Reports: Diabetes, Type II Hematologic History: Reports: Anticoagulation Therapy, Iron Deficiency Other Hematologic History: iron transfusions Immunologic History: Reports: None Oncologic (Cancer) History: Reports: None Dermatologic History: Reports: Psoriasis - Infectious Disease History Infectious Disease History: Reports: Chicken Pox - Past Surgical History Head Surgeries/Procedures: Reports: None HEENT Surgical History: Reports: Cataract Surgery, Eye Surgery Cardiovascular Surgical History: Reports: Coronary Artery Bypass, Coronary Artery Stent Respiratory Surgical History: Reports: None GI Surgical History: Reports: Appendectomy, Cholecystectomy, Colonoscopy Female Surgical History: Reports: Breast Biopsy, Oophorectomy Social & Family History - Family History Musculoskeletal: Reports: RA - Tobacco Use Smoking Status *Q: Never Smoker - Caffeine Use Caffeine Use: Reports: Coffee - Recreational Drug Use Recreational Drug Use: No - Living Situation & Occupation Living situation: Reports: , Alone Occupation: Retired Review of Systems - Review of Systems Review Of Systems: See Below Constitutional: Reports: No Symptoms Eyes: Reports: No Symptoms Ears: Reports: No Symptoms Nose: Reports: No Symptoms Mouth/Throat: Reports: No Symptoms Respiratory: Reports: No Symptoms Cardiovascular: Reports: No Symptoms GI/Abdominal: Reports: No Symptoms Genitourinary: Reports: No Symptoms Musculoskeletal: Reports: Joint Pain (right knee) ED EXAM, GENERAL - Physical Exam Exam: See Below Exam Limited By: No Limitations General Appearance: Alert, No Apparent Distress Ears: Normal External Exam Nose: Normal Inspection Throat/Mouth: Normal Inspection Neck: Normal Inspection Respiratory/Chest: No Respiratory Distress, Lungs Clear, Normal Breath Sounds Cardiovascular: Regular Rate, Rhythm, No Edema, No Murmur GI/Abdominal: Soft, Non-Tender, No Organomegaly, No Mass Back Exam: Normal Inspection Extremities: Other (Right knee pain to the medial knee and anterior knee with edema. Good sensation and pulses distally.) Course - Vital Signs Last Recorded V/S: Last Vital Signs Temp 97.4 F 02/14/19 14:47 Pulse 67 02/14/19 14:47 Resp 16 02/14/19 14:47 BP Pulse Ox 97 02/14/19 14:47 - Orders/Labs/Meds Orders: Active Orders 24 hr Category Date Time Status Knee Min 4V Rt [CR] Stat Exams 02/14/19 15:14 Taken - Re-Assessments/Exams Free Text/Narrative Re-Assessment/Exam: 02/14/19 17:10 I ordered another x-ray and that looked good. I will refer her to Dr Macias and give her a hinged brace and refer her to physical therapy. Departure - Departure Time of Disposition: 17:15 Disposition: Home, Self-Care 01 Condition: Good Clinical Impression: Right knee pain Qualifiers: Chronicity: acute Qualified Code(s): M25.561 - Pain in right knee Right knee injury Qualifiers: Encounter type: subsequent encounter Qualified Code(s): S89.91XD - Unspecified injury of right lower leg, subsequent encounter - Discharge Information *PRESCRIPTION DRUG MONITORING PROGRAM REVIEWED*: No *COPY OF PRESCRIPTION DRUG MONITORING REPORT IN PATIENT CARIN: No Referrals: Joce Salguero MD [Primary Care Provider] - Grant Macias MD [Physician] - 1 Week Additional Instructions: Keep icing your knee and take tylenol for pain. Use the hinged knee brace. Follow up with Dr Macias and Anatoliy your physical therapist. I have ordered an MRI of your knee for Wednesday the 21 of February at 9am. Please return if you are worse. - My Orders Last 24 Hours: My Active Orders 02/14/19 15:14 Knee Min 4V Rt [CR] Stat - Assessment/Plan Last 24 Hours: My Active Orders 02/14/19 15:14 Knee Min 4V Rt [CR] Stat
--- NOTE | 2019-02-15 07:11 | CR ---
Right knee: Four views of the right knee were obtained. Comparison: No prior right knee exam. Mild medial joint space narrowing is seen. Lateral joint space is preserved. Possible minimal joint effusion. Vascular calcification is noted. No fracture or other abnormality is seen. Impression: 1. Mild medial joint space narrowing and possible small joint effusion. 2. Vascular calcification. Diagnostic code #2
== END 2019-02-14 17:20 | disposition home or self-care (01) ==
LOC: JD.ED 14:19
DX: S89.91XA Unspecified injury of right lower leg, initial encounter (principal); I25.10 Atherosclerotic heart disease of native coronary artery without angina pectoris; E78.00 Pure hypercholesterolemia, unspecified; I25.2 Old myocardial infarction; E11.22 Type 2 diabetes mellitus with diabetic chronic kidney disease; I12.9 Hypertensive chronic kidney disease with stage 1 through stage 4 chronic kidney disease, or unspecified chronic kidney disease; N18.9 Chronic kidney disease, unspecified; M81.0 Age-related osteoporosis without current pathological fracture; Z91.040 Latex allergy status; Z91.09 Other allergy status, other than to drugs and biological substances; Z88.8 Allergy status to other drugs, medicaments and biological substances; Z88.5 Allergy status to narcotic agent; Z95.5 Presence of coronary angioplasty implant and graft; Z95.1 Presence of aortocoronary bypass graft; Z79.02 Long term (current) use of antithrombotics/antiplatelets; Z79.899 Other long term (current) drug therapy; Z79.4 Long term (current) use of insulin; W20.8XXA Other cause of strike by thrown, projected or falling object, initial encounter
CPT/HCPCS: 73564-26-RT; 73564-RT; 99282; 99283-25

== ENCOUNTER 2020-02-08 12:01 | Emergency (ER) | payer MEDICARE, BC ==
[2020-02-08 12:14] VITALS: BP 184/82; PULSE 85
[2020-02-08] MEDS ORDERED: Sodium Chloride 0.9% 10 ML Syringe FLUSH PRN (12:32)
[2020-02-08] MEDS ORDERED: Sodium Chloride 0.9% 1,000 ML IV STA (13:50)
--- NOTE | 2020-02-08 13:56 | EDM.PDOC ---
ED HPI GENERAL MEDICAL PROBLEM - General Chief Complaint: Syncope Stated Complaint: SYNCOPE AND VOMITING SENT BY DR SALGUERO Time Seen by Provider: 02/08/20 12:23 Source of Information: Reports: Patient History Limitations: Reports: No Limitations - History of Present Illness INITIAL COMMENTS - FREE TEXT/NARRATIVE: Patient is an 80-year-old female presenting to the emergency department with complaints of having a syncopal event at home. She states that she did not sleep well last evening due to having pain in her right great toe which has been diagnosed as gout. This morning she got up to use the bathroom. After she use the bathroom she was going to go to the kitchen, however she started to feel faint. She then laid down on the floor to prevent falling. States that she passed out briefly and when she resumed consciousness she was feeling cool, and diaphoretic. States that she laid on the floor for a while until she felt strong enough to stand up. After she was able to get up to the chair she had a period of vomiting. Patient states that she was recently diagnosed with a DVT of her left lower extremity. She was started on Eliquis on Wednesday for treatment of this, as well as prednisone for treatment of gout of her left great toe. Patient states that she has had episodes such as this in the past. She currently has a loop recorder which will send out an alarm if she has a cardiac event. She says no such alarm was triggered with this event. At this point she is feeling well. She did have orthostatic vital signs completed and states she felt a little off balance when she stood up with that. She also states that she has not been able take her morning medications today. She denies any chest pain, shortness of breath, or abdominal pain now or at the time of the syncopal event. - Related Data Allergies Allergy/AdvReac Type Severity Reaction Status Date / Time iodine Allergy Unknown unknown Verified 02/08/20 12:14 latex Allergy Rash, Verified 02/08/20 12:14 Blisters and Skin Sensitivities atorvastatin calcium AdvReac Unknown Muscles Verified 02/08/20 12:14 [From Lipitor] Aches hydromorphone HCl AdvReac Unknown Nausea and Verified 02/08/20 12:14 [From Dilaudid] Vomiting meperidine HCl [From Demerol] AdvReac Unknown Nausea and Verified 02/08/20 12:14 Vomiting Home Meds: Home Meds Calcium Carbonate/Vitamin D3 [Calcium 600 + Vit D 400] 1 mg PO DAILY 08/15/13 [History] Clopidogrel [Plavix] 75 mg PO DAILY 08/15/13 [History] Insulin Detemir [Levemir Flexpen] 20 unit SQ BID 08/15/13 [History] Isosorbide Mononitrate [Imdur] 30 mg PO DAILY 08/15/13 [History] Lutein/Minerals/Vit A,C & E [Ocuvite] 1 tab PO DAILY 08/15/13 [History] Nitroglycerin [Nitroquick] 0.4 mg SL Q5M PRN 08/15/13 [History] [place]-3 Fatty Acids [[place]-3] 2,000 mg PO DAILY 08/15/13 [History] Ubidecarenone [Co Q-10] 100 mg PO DAILY 09/29/13 [History] Doxazosin Mesylate [Cardura] 1 mg PO DAILY 04/13/17 [History] Glimepiride [Amaryl] 4 mg PO 1700 04/13/17 [History] Metoprolol Tartrate 100 mg PO BID 04/13/17 [History] Clobetasol Propionate [Temovate 0.05% Oint] 15 gm TP DAILY 11/19/17 [History] Simvastatin [Zocor] 40 mg PO BEDTIME 11/19/17 [History] calcitrioL [Rocaltrol] 0.25 mcg PO DAILY 11/19/17 [History] Ezetimibe 10 mg PO DAILY 02/14/19 [History] Niacinamide [Niacin] 500 mg PO BID 02/14/19 [History] Apixaban [Eliquis] 5 mg PO ASDIRECTED 02/08/20 [History] Furosemide 20 mg PO DAILY 02/08/20 [History] predniSONE [Prednisone] 10 mg PO DAILY 02/08/20 [History] Past Medical History HEENT History: Reports: Impaired Vision Other HEENT History: wears eyeglasses Cardiovascular History: Reports: CAD, High Cholesterol, Hypertension, [place] Other Cardiovascular History: stents x4, CABG Respiratory History: Reports: PE, Sleep Apnea Gastrointestinal History: Reports: GERD Genitourinary History: Reports: Chronic Renal Insuffiency 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: , Other (See Below) Other ARCHITECTURAL DRAFTING INSTRUCTOR History: vulvular lesion Musculoskeletal History: Reports: Gout, Osteoarthritis Neurological History: Reports: Other (See Below) Other Neuro History: Syncopal Episodes Psychiatric History: Reports: None Endocrine/Metabolic History: Reports: Diabetes, Type II Hematologic History: Reports: Anticoagulation Therapy, Iron Deficiency Other Hematologic History: iron transfusions Immunologic History: Reports: None Oncologic (Cancer) History: Reports: None Dermatologic History: Reports: Psoriasis - Infectious Disease History Infectious Disease History: Reports: Chicken Pox - Past Surgical History HEENT Surgical History: Reports: Cataract Surgery, Eye Surgery Cardiovascular Surgical History: Reports: Coronary Artery Bypass, Coronary Artery Stent Respiratory Surgical History: Reports: None GI Surgical History: Reports: Appendectomy, Cholecystectomy, Colonoscopy Female Surgical History: Reports: Breast Biopsy, Oophorectomy Social & Family History - Family History Musculoskeletal: Reports: RA - Tobacco Use Smoking Status *Q: Former Smoker Used Tobacco, but Quit: Yes Month/Year Tobacco Last Used: 1998 - Caffeine Use Caffeine Use: Reports: Coffee, Soda - Recreational Drug Use Recreational Drug Use: No - Living Situation & Occupation Living situation: Reports: , Alone Occupation: Retired ED ROS GENERAL - Review of Systems Review Of Systems: See Below Constitutional: Reports: No Symptoms. Denies: Fever, Chills, Weakness HEENT: Reports: No Symptoms Respiratory: Reports: No Symptoms. Denies: Shortness of Breath, Wheezing, Cough Cardiovascular: Reports: Syncope. Denies: Chest Pain, Dyspnea on Exertion Endocrine: Reports: No Symptoms GI/Abdominal: Reports: Nausea, Vomiting. Denies: Abdominal Pain, Diarrhea : Reports: No Symptoms. Denies: Dysuria Musculoskeletal: Reports: No Symptoms Skin: Reports: No Symptoms Neurological: Reports: No Symptoms Psychiatric: Reports: No Symptoms Hematologic/Lymphatic: Reports: No Symptoms Immunologic: Reports: No Symptoms - Physical Exam Exam: See Below General Appearance: Alert, WD/WN, No Apparent Distress Respiratory/Chest: No Respiratory Distress, Lungs Clear, Normal Breath Sounds, No Accessory Muscle Use, Chest Non-Tender Cardiovascular: Normal Peripheral Pulses, Regular Rate, Rhythm, No Edema, No Gallop, No JVD, No Murmur, No Rub GI/Abdominal: Normal Bowel Sounds, Soft, Non-Tender, No Organomegaly, No Distention, No Abnormal Bruit, No Mass Neuro Exam (Abbreviated): Alert, Oriented, CN II-XII Intact, Normal Cognition, Normal Gait, Normal Reflexes, No Motor/Sensory Deficits Extremities: Other (Redness and warmth to the MCP joint of the left great toe.) Psychiatric: Normal Affect, Normal Mood Skin Exam: Warm, Dry, Intact, Normal Color, No Rash EKG INTERPRETATION EKG Date: 02/09/20 Time: 13:08 Rhythm: NSR Rate (Beats/Min): 82 [place]: Normal P-Wave: Present QRS: Normal ST-T: Normal QT: Normal PA/PQ Interval: First degree AV block. EKG Interpretation Comments: ST depression leads I to and V3 through V6. No interval change from previous EKG on 19 November 2017. EKG interpreted by Dr. Sonja Collier MD. Course - Vital Signs Last Recorded V/S: Last Vital Signs Temp 96.9 F 02/08/20 12:08 Pulse 85 02/08/20 12:08 Resp 16 02/08/20 12:08 BP 184/82 H 02/08/20 12:08 Pulse Ox 99 02/08/20 12:08 Orthostatic Blood Pressure [ 124/73 Standing] Orthostatic Blood Pressure [ 164/78 Sitting] Orthostatic Blood Pressure [ 171/73 Supine] - Orders/Labs/Meds Orders: Active Orders 24 hr Category Date Time Status CULTURE URINE [RM] Stat Lab 02/08/20 12:58 Received Peripheral IV Insertion Adult [OM.PC] Stat Oth 02/08/20 12:31 Ordered Labs: Laboratory Tests 02/08/20 02/08/20 02/08/20 Range/Units 12:41 12:42 12:42 WBC 7.31 (3.98-10.04) K/mm3 RBC 4.05 (3.98-5.22) M/mm3 Hgb 13.2 (11.2-15.7) gm/dl Hct 40.3 (34.1-44.9) % MCV 99.5 H (79.4-94.8) fl MCH 32.6 H (25.6-32.2) pg MCHC 32.8 (32.2-35.5) g/dl RDW Std Deviation 53.9 H (36.4-46.3) fL Plt Count 247 (182-369) K/mm3 MPV 10.1 (9.4-12.3) fl Neut % (Auto) 80.6 H (34.0-71.1) % Lymph % (Auto) 11.1 L (19.3-51.7) % [place] % (Auto) 7.5 (4.7-12.5) % Eos % (Auto) 0.3 L (0.7-5.8) Baso % (Auto) 0.0 L (0.1-1.2) % Neut # (Auto) 5.89 (1.56-6.13) K/mm3 Lymph # (Auto) 0.81 L (1.18-3.74) K/mm3 [place] # (Auto) 0.55 H (0.24-0.36) K/mm3 Eos # (Auto) 0.02 L (0.04-0.36) K/mm3 Baso # (Auto) 0.00 L (0.01-0.08) K/mm3 D-Dimer, Quantitative (0.19-0.50) mg/L Sodium 133 L (136-145) mEq/L Potassium 4.7 (3.5-5.1) mEq/L Chloride 98 (98-107) mEq/L Carbon Dioxide 23 (21-32) mEq/L Anion Gap 16.7 H (5-15) BUN 62 H (7-18) mg/dL Creatinine 2.6 H (0.55-1.02) mg/dL Est Cr Clr Drug Dosing TNP Estimated GFR (MDRD) 18 (>60) mL/min BUN/Creatinine Ratio 23.8 H (14-18) Glucose 195 H (83-115) mg/dL Calcium 10.0 (8.5-10.1) mg/dL Total Bilirubin 0.6 (0.2-1.0) mg/dL AST 14 L (15-37) U/L ALT 17 (14-59) U/L Alkaline Phosphatase 85 (46-116) U/L Troponin I 0.047 (0.00-0.056) ng/mL C-Reactive Protein 0.7 (<1.0) mg/dL NT-Pro-B Natriuret Pep 2229 H (0-450) pg/mL Total Protein 7.9 (6.4-8.2) g/dl Albumin 3.6 (3.4-5.0) g/dl Globulin 4.3 gm/dL Albumin/Globulin Ratio 0.8 L (1-2) Urine Color (Yellow) Urine Appearance (Clear) Urine pH (5.0-8.0) Ur Specific [place] (1.005-1.030) Urine Protein (Negative) Urine Glucose (UA) (Negative) Urine Ketones (Negative) Urine Occult Blood (Negative) Urine Nitrite (Negative) Urine Bilirubin (Negative) Urine Urobilinogen (0.2-1.0) Ur Leukocyte Esterase (Negative) U Hyaline Cast (Auto) (0-5) /lpf Urine RBC (0-5) /hpf Urine WBC (0-5) /hpf Ur Squamous Epith Cells (0-5) /hpf Urine Bacteria (FEW) /hpf Urine Mucus (FEW) /hpf 02/08/20 02/08/20 Range/Units 12:42 12:58 WBC (3.98-10.04) K/mm3 RBC (3.98-5.22) M/mm3 Hgb (11.2-15.7) gm/dl Hct (34.1-44.9) % MCV (79.4-94.8) fl MCH (25.6-32.2) pg MCHC (32.2-35.5) g/dl RDW Std Deviation (36.4-46.3) fL Plt Count (182-369) K/mm3 MPV (9.4-12.3) fl Neut % (Auto) (34.0-71.1) % Lymph % (Auto) (19.3-51.7) % A[place] % (Auto) (4.7-12.5) % Eos % (Auto) (0.7-5.8) Baso % (Auto) (0.1-1.2) % Neut # (Auto) (1.56-6.13) K/mm3 Lymph # (Auto) (1.18-3.74) K/mm3 [place] # (Auto) (0.24-0.36) K/mm3 Eos # (Auto) (0.04-0.36) K/mm3 Baso # (Auto) (0.01-0.08) K/mm3 D-Dimer, Quantitative 5.36 H (0.19-0.50) mg/L Sodium (136-145) mEq/L Potassium (3.5-5.1) mEq/L Chloride (98-107) mEq/L Carbon Dioxide (21-32) mEq/L Anion Gap (5-15) BUN (7-18) mg/dL Creatinine (0.55-1.02) mg/dL Est Cr Clr Drug Dosing Estimated GFR (MDRD) (>60) mL/min BUN/Creatinine Ratio (14-18) Glucose (83-115) mg/dL Calcium (8.5-10.1) mg/dL Total Bilirubin (0.2-1.0) mg/dL AST (15-37) U/L ALT (14-59) U/L Alkaline Phosphatase (46-116) U/L Troponin I (0.00-0.056) ng/mL C-Reactive Protein (<1.0) mg/dL NT-Pro-B Natriuret Pep (0-450) pg/mL Total Protein (6.4-8.2) g/dl Albumin (3.4-5.0) g/dl Globulin gm/dL Albumin/Globulin Ratio (1-2) Urine Color Yellow (Yellow) Urine Appearance Clear (Clear) Urine pH 6.0 (5.0-8.0) Ur Specific [place] 1.025 (1.005-1.030) Urine Protein 2+ H (Negative) Urine Glucose (UA) Negative (Negative) Urine Ketones Negative (Negative) Urine Occult Blood Trace-lysed H (Negative) Urine Nitrite Negative (Negative) Urine Bilirubin Negative (Negative) Urine Urobilinogen 0.2 (0.2-1.0) Ur Leukocyte Esterase Trace H (Negative) U Hyaline Cast (Auto) 0-5 (0-5) /lpf Urine RBC 0-5 (0-5) /hpf Urine WBC 0-5 (0-5) /hpf Ur Squamous Epith Cells 0-5 (0-5) /hpf Urine Bacteria Rare (FEW) /hpf Urine Mucus Not seen (FEW) /hpf Meds: Medications Discontinued Medications Generic Name Dose Route Start Last Admin Trade Name Freq PRN Reason Stop Dose Admin Apixaban 10 mg 02/08/20 14:53 02/08/20 15:02 Eliquis PO 02/08/20 14:54 10 mg ONETIME ONE Administration Sodium Chloride 1,000 mls @ 999 mls/hr 02/08/20 13:50 02/08/20 14:05 Normal Saline IV 02/08/20 14:50 999 mls/hr NOW STA Administration Sodium Chloride 10 ml 02/08/20 12:32 02/08/20 13:41 Saline Flush FLUSH 10 ml ASDIRECTED PRN Administration Keep Vein Open - Re-Assessments/Exams Free Text/Narrative Re-Assessment/Exam: Patient is an 80-year-old female presenting to the emergency department for evaluation after what sounds like a syncopal event at home. She felt that she was getting dizzy, therefore she lowered herself to the floor before she fell. She is feeling well at this time. Orthostatic vital signs were completed and did show a 40 point drop in her systolic blood pressure upon standing. I ordered a CBC, CMP, CRP, d-dimer, troponin, EKG of her heart, chest x-ray. We will give her a 500 mill bolus of normal saline. 02/08/20 15:21 Hematology was significant for d-dimer elevated at 5.36, however patient was diagnosed with a DVT of her left lower leg on Wednesday and started on Eliquis. She did not get her Eliquis dose this morning, therefore I ordered her 10 mg dose to be given in ER, so that she may take her second dose before bed tonight. Sodium was slight low at 133, anion gap 16.7, BUN 62, creatinine 2.6. Patient does have stage IV kidney disease and states that the BUN and creatinine is what she normally runs. Glucose elevated at 195, however she is currently on prednisone. BNP 2229. Patient's vital signs have been stable throughout her stay in the ER. Oxygen saturation 98 to 100% on room air. She is not tachycardic. She is feeling much better after the 500 mill bolus of normal saline and has been very anxious to go home. Her loop recorder did not bring out any cardiac abnormalities when she had the syncopal event. She does state that she is had a number of episodes similar to this in the past and they have never found a cause for it. She is scheduled to have a number of cardiac test done tomorrow including an echocardiogram and a ultrasound of her carotid arteries, as well as an ultrasound of her aorta to follow-up on her aortic aneurysm. Recommend that she keep her appointment for these.. She verbalizes understanding of all this and is ready to go home. Discharge instructions as documented. Departure - Departure Time of Disposition: 15:26 Disposition: Home, Self-Care 01 Condition: Good Clinical Impression: Syncope Qualifiers: Syncope type: unspecified Qualified Code(s): R55 - Syncope and collapse - Discharge Information *PRESCRIPTION DRUG MONITORING PROGRAM REVIEWED*: No *COPY OF PRESCRIPTION DRUG MONITORING REPORT IN PATIENT CARIN: No Instructions: Syncope, [id number] Referrals: Joce Salguero MD [Primary Care Provider] - Forms: ED Department Discharge Additional Instructions: You were seen in the emergency department today after having syncopal episode at home. Your exam included blood work, an EKG of your heart, urinalysis, and orthostatic blood pressures. While there were some abnormalities in your blood work, they are consistent with what is normal for you. Your urinalysis did not show any infection. Your EKG was unchanged from the EKG that was completed here 2 years ago. You were found to be slightly orthostatic in the emergency department, therefore you received some IV fluids. You also received your morning dose of Eliquis in the emergency department. Recommend that you ensure that you are getting an adequate amount of fluid. Change positions slowly to prevent a recurrence of orthostasis or syncope. Take your medicate your daily medications that you missed this morning when you get home. Do not take the medications that you take twice daily until your evening dose tonight. Recommend that you keep your appointment for preventative testing that is scheduled for tomorrow. Return to the ER if you experience a recurrence of syncope or any new or worsening circumflex and symptoms of concern. Sepsis Event Note (ED) - Evaluation Sepsis Screening Result: No Definite Risk - My Orders Last 24 Hours: My Active Orders 02/08/20 12:31 Peripheral IV Insertion Adult [OM.PC] Stat 02/08/20 12:58 CULTURE URINE [RM] Stat - Assessment/Plan Last 24 Hours: My Active Orders 02/08/20 12:31 Peripheral IV Insertion Adult [OM.PC] Stat 02/08/20 12:58 CULTURE URINE [RM] Stat
[2020-02-08] MEDS ORDERED: Apixaban 5 MG Tab PO ONE (14:53)
== END 2020-02-08 15:38 | disposition home or self-care (01) ==
LOC: JD.ED 12:01
DX: R55 Syncope and collapse (principal); I25.10 Atherosclerotic heart disease of native coronary artery without angina pectoris; E78.00 Pure hypercholesterolemia, unspecified; I25.2 Old myocardial infarction; I12.9 Hypertensive chronic kidney disease with stage 1 through stage 4 chronic kidney disease, or unspecified chronic kidney disease; E11.22 Type 2 diabetes mellitus with diabetic chronic kidney disease; M10.9 Gout, unspecified; N18.9 Chronic kidney disease, unspecified; Z91.048 Other nonmedicinal substance allergy status; Z91.040 Latex allergy status; Z88.8 Allergy status to other drugs, medicaments and biological substances; Z88.5 Allergy status to narcotic agent; Z79.4 Long term (current) use of insulin; Z79.02 Long term (current) use of antithrombotics/antiplatelets; Z79.01 Long term (current) use of anticoagulants; Z79.899 Other long term (current) drug therapy; Z87.891 Personal history of nicotine dependence; Z95.1 Presence of aortocoronary bypass graft; Z86.711 Personal history of pulmonary embolism
CPT/HCPCS: 36415; 80053; 81001; 83880; 84484; 85025; 85379; 86140; 87086; 93005; 96360; 99284; A9270; J7030; 87088; 87184; 93010; 99283

== ENCOUNTER 2020-02-09 16:28 | Emergency (ER) | payer MEDICARE, BC ==
[2020-02-09 16:52] VITALS: BP 171/96; PULSE 80
--- NOTE | 2020-02-09 17:57 | EDM.PDOC ---
ED HPI GENERAL MEDICAL PROBLEM - General Chief Complaint: Cardiovascular Problem Stated Complaint: [facility] Time Seen by Provider: 02/09/20 16:47 Source of Information: Reports: Patient, Old Records, RN Notes Reviewed History Limitations: Reports: No Limitations - History of Present Illness INITIAL COMMENTS - FREE TEXT/NARRATIVE: Patient is an 80-year-old female who presents to the ED via [facility] by the direction of a field handyman. Patient has an implanted loop recorder, and was found to have an 8-second pause, which caused a syncopal episode, and they stated she needed to come to the ER for transfer to [place] for pacemaker placement. Patient notes she is not having any symptoms today, and feels fairly good except for the pain in her toe. Review of her note yesterday, notes that she had a syncopal episode or fainting episode yesterday that she was evaluated in this ER for. Evaluation was unremarkable. Patient's not having any sick-like symptoms, fever/chills, nausea/vomiting/cough/shortness of breath. - Related Data Allergies Allergy/AdvReac Type Severity Reaction Status Date / Time iodine Allergy Unknown unknown Verified 02/09/20 16:43 latex Allergy Rash, Verified 02/09/20 16:43 Blisters and Skin Sensitivities atorvastatin calcium AdvReac Unknown Muscles Verified 02/09/20 16:43 [From Lipitor] Aches hydromorphone HCl AdvReac Unknown Nausea and Verified 02/09/20 16:43 [From Dilaudid] Vomiting meperidine HCl [From Demerol] AdvReac Unknown Nausea and Verified 02/09/20 16:43 Vomiting Home Meds: Home Meds Calcium Carbonate/Vitamin D3 [Calcium 600 + Vit D 400] 1 mg PO DAILY 08/15/13 [History] Clopidogrel [Plavix] 75 mg PO DAILY 08/15/13 [History] Insulin Detemir [Levemir Flexpen] 20 unit SQ BID 08/15/13 [History] Isosorbide Mononitrate [Imdur] 30 mg PO DAILY 08/15/13 [History] Lutein/Minerals/Vit A,C & E [Ocuvite] 1 tab PO DAILY 08/15/13 [History] Nitroglycerin [Nitroquick] 0.4 mg SL Q5M PRN 08/15/13 [History] [place]-3 Fatty Acids [[place]-3] 2,000 mg PO DAILY 08/15/13 [History] Ubidecarenone [Co Q-10] 100 mg PO DAILY 09/29/13 [History] Doxazosin Mesylate [Cardura] 1 mg PO DAILY 04/13/17 [History] Glimepiride [Amaryl] 4 mg PO 1700 04/13/17 [History] Metoprolol Tartrate 100 mg PO BID 04/13/17 [History] Clobetasol Propionate [Temovate 0.05% Oint] 15 gm TP DAILY 11/19/17 [History] Simvastatin [Zocor] 40 mg PO BEDTIME 11/19/17 [History] calcitrioL [Rocaltrol] 0.25 mcg PO DAILY 11/19/17 [History] Ezetimibe 10 mg PO DAILY 02/14/19 [History] Niacinamide [Niacin] 500 mg PO BID 02/14/19 [History] Apixaban [Eliquis] 5 mg PO ASDIRECTED 02/08/20 [History] Furosemide 20 mg PO DAILY 02/08/20 [History] predniSONE [Prednisone] 10 mg PO DAILY 02/08/20 [History] Past Medical History HEENT History: Reports: Impaired Vision Other HEENT History: wears eyeglasses Cardiovascular History: Reports: CAD, High Cholesterol, Hypertension, [place] Other Cardiovascular History: stents x4, CABG Respiratory History: Reports: PE, Sleep Apnea Gastrointestinal History: Reports: GERD Genitourinary History: Reports: Chronic Renal Insuffiency 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: , 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 (See Below) Other MAJOR GIFTS OFFICER History: vulvular lesion Musculoskeletal History: Reports: Gout, Osteoarthritis Neurological History: Reports: Other (See Below) Other Neuro History: Syncopal Episodes Psychiatric History: Reports: None Endocrine/Metabolic History: Reports: Diabetes, Type II Hematologic History: Reports: Anticoagulation Therapy, Iron Deficiency Other Hematologic History: iron transfusions Immunologic History: Reports: None Oncologic (Cancer) History: Reports: None Dermatologic History: Reports: Psoriasis - Infectious Disease History Infectious Disease History: Reports: None - Past Surgical History HEENT Surgical History: Reports: Cataract Surgery, Eye Surgery Cardiovascular Surgical History: Reports: Coronary Artery Bypass, Coronary Artery Stent Respiratory Surgical History: Reports: None GI Surgical History: Reports: Appendectomy, Cholecystectomy, Colonoscopy Female Surgical History: Reports: Breast Biopsy, Oophorectomy Endocrine Surgical History: Reports: None Social & Family History - Family History Family Medical History: Noncontributory Musculoskeletal: Reports: RA - Tobacco Use Smoking Status *Q: Never Smoker - Caffeine Use Caffeine Use: Reports: Coffee, Soda - Recreational Drug Use Recreational Drug Use: No - Living Situation & Occupation Living situation: Reports: , Alone Occupation: Retired ED ROS GENERAL - Review of Systems Review Of Systems: Comprehensive ROS is negative, except as noted in HPI. ED EXAM, GENERAL - Physical Exam Exam: See Below Exam Limited By: No Limitations General Appearance: Alert, WD/WN, No Apparent Distress Respiratory/Chest: No Respiratory Distress, Lungs Clear, Normal Breath Sounds, No Accessory Muscle Use, Chest Non-Tender Cardiovascular: Normal Peripheral Pulses, Regular Rate, Rhythm, No Murmur Peripheral Pulses: 2+: Radial (L), Radial (R) Neurological: Alert, Oriented, Normal Cognition, No Motor/Sensory Deficits Psychiatric: Normal Affect, Normal Mood Skin Exam: Warm, Dry, Intact, Normal Color, No Rash Course - Vital Signs Last Recorded V/S: Last Vital Signs Temp 97.4 F 02/09/20 16:40 Pulse 80 02/09/20 16:51 Resp 18 02/09/20 16:51 BP 171/96 H 02/09/20 16:51 Pulse Ox 97 02/09/20 16:51 - Re-Assessments/Exams Free Text/Narrative Re-Assessment/Exam: 02/09/20 17:59 Patient presents to the ED by the direction of her field handyman to be transferred to [place] for pacemaker. I was in contact with Dr. Katz, and he does confirm that the patient is to go to [place] for placement. As she had labs done yesterday, he states we do not have to repeat these, but I will include yesterday's visit along with my report. I did discuss the case with Dr. Monahan, hospitalist at [facility]. He ultimately accepts patient in transfer. Ambulance will be called for transfer. Departure - Departure Time of Disposition: 18:01 Disposition: Home, Self-Care 01 Reason for Transfer *Q: Other (need for pacemaker) Condition: Good Clinical Impression: Sinus pause Referrals: Joce Salguero MD [Primary Care Provider] - Sepsis Event Note (ED) - Evaluation Sepsis Screening Result: No Definite Risk - Focused Exam Vital Signs: Vital Signs Temp Pulse Resp BP Pulse Ox 02/09/20 16:51 80 18 171/96 H 97 02/09/20 16:40 97.4 F 85 16 201/104 H 97
== END 2020-02-09 19:10 | disposition home or self-care (01) ==
LOC: JD.ED 16:28
DX: I45.5 Other specified heart block (principal); I25.10 Atherosclerotic heart disease of native coronary artery without angina pectoris; E78.00 Pure hypercholesterolemia, unspecified; I12.9 Hypertensive chronic kidney disease with stage 1 through stage 4 chronic kidney disease, or unspecified chronic kidney disease; E11.22 Type 2 diabetes mellitus with diabetic chronic kidney disease; N18.9 Chronic kidney disease, unspecified; I25.2 Old myocardial infarction; Z95.1 Presence of aortocoronary bypass graft; Z91.048 Other nonmedicinal substance allergy status; Z91.040 Latex allergy status; Z88.8 Allergy status to other drugs, medicaments and biological substances; Z88.5 Allergy status to narcotic agent; Z79.4 Long term (current) use of insulin; Z79.02 Long term (current) use of antithrombotics/antiplatelets; Z79.899 Other long term (current) drug therapy; Z79.01 Long term (current) use of anticoagulants
CPT/HCPCS: 99283; 99284

== ENCOUNTER 2020-06-02 08:39 | Emergency (ER) | payer MEDICARE, OTHER, MEDICAID ==
[2020-06-02 08:53] VITALS: BP 151/74; PULSE 80
--- NOTE | 2020-06-02 09:04 | EDM.PDOC ---
ED HPI GENERAL MEDICAL PROBLEM - General Chief Complaint: Genitourinary Problem Stated Complaint: UTI Time Seen by Provider: 06/02/20 08:55 Source of Information: Reports: Patient History Limitations: Reports: No Limitations - History of Present Illness INITIAL COMMENTS - FREE TEXT/NARRATIVE: 80-year-old female attends the ED primarily for evaluation of bright red bleeding appreciated after wiping post voiding early this morning around 0630 hrs. She states bleeding was bright red and persistent and she could not identify the source. She ended up placing a wash cloth between her vulva and underwear to collect blood. Of note the patient is on Plavix and Eliquis 5 mg daily due to coronary disease. She was unsure if the bleeding came from the urethra but she does not have any dysuria urgency or frequency and she has never had any bleeding per vagina since menopause. Previous abdominal surgery is that of an appendectomy cholecystectomy and removal of the right ovary. Complains of diffuse left lower quadrant abdominal discomfort for several weeks with normal bowel movements and no blood noted. Onset: Today Onset Date: 06/02/20 Onset Time: 06:30 Duration: Hour(s):, Improving Location: Reports: Other (From the genital area after wiping after voiding early this morning.) Quality: Reports: Other (Bright red blood coming from the vulva.) Severity: Mild Improves with: Reports: Other (Proved prior to coming to the ED.) Context: Reports: Other (Spontaneous bleeding from genital area after voiding this morning and wiping.). Denies: Activity, Exercise, Lifting, Sick Contact, Trauma Associated Symptoms: Reports: No Other Symptoms, Other (Chronic left lower quadrant abdominal tenderness.). Denies: Confusion, Chest Pain, Cough, cough w sputum, Diaphoresis, Fever/Chills, Headaches, Malaise, Nausea/Vomiting, Rash, Seizure, Shortness of Breath, Weakness Treatments CHIEF COOK: Reports: Other (see below) (Only her usual meds.) Right Lower Abdominal Pain Score (Numeric/FACES): 6 - Related Data Allergies Allergy/AdvReac Type Severity Reaction Status Date / Time iodine Allergy Unknown unknown Verified 06/02/20 08:53 latex Allergy Rash, Verified 06/02/20 08:53 Blisters and Skin Sensitivities atorvastatin calcium AdvReac Unknown Muscles Verified 06/02/20 08:53 [From Lipitor] Aches hydromorphone HCl AdvReac Unknown Nausea and Verified 06/02/20 08:53 [From Dilaudid] Vomiting meperidine HCl [From Demerol] AdvReac Unknown Nausea and Verified 06/02/20 08:53 Vomiting Home Meds: Home Meds Calcium Carbonate/Vitamin D3 [Calcium 600 + Vit D 400] 1 mg PO DAILY 08/15/13 [History] Clopidogrel [Plavix] 75 mg PO DAILY 08/15/13 [History] Insulin Detemir [Levemir Flexpen] 20 unit SQ BID 08/15/13 [History] Isosorbide Mononitrate [Imdur] 30 mg PO DAILY 08/15/13 [History] Lutein/Minerals/Vit A,C & E [Ocuvite] 1 tab PO DAILY 08/15/13 [History] Nitroglycerin [Nitroquick] 0.4 mg SL Q5M PRN 08/15/13 [History] [place]-3 Fatty Acids [[place]-3] 2,000 mg PO DAILY 08/15/13 [History] Ubidecarenone [Co Q-10] 100 mg PO DAILY 09/29/13 [History] Doxazosin Mesylate [Cardura] 1 mg PO DAILY 04/13/17 [History] Glimepiride [Amaryl] 4 mg PO 1700 04/13/17 [History] Metoprolol Tartrate 100 mg PO BID 04/13/17 [History] Clobetasol Propionate [Temovate 0.05% Oint] 15 gm TP DAILY 11/19/17 [History] Simvastatin [Zocor] 40 mg PO BEDTIME 11/19/17 [History] calcitrioL [Rocaltrol] 0.25 mcg PO DAILY 11/19/17 [History] Ezetimibe 10 mg PO DAILY 02/14/19 [History] Niacinamide [Niacin] 500 mg PO BID 02/14/19 [History] Apixaban [Eliquis] 5 mg PO ASDIRECTED 02/08/20 [History] Furosemide 20 mg PO DAILY 02/08/20 [History] predniSONE [Prednisone] 10 mg PO DAILY 02/08/20 [History] Past Medical History HEENT History: Reports: Impaired Vision Other HEENT History: wears eyeglasses Cardiovascular History: Reports: Afib, CAD, High Cholesterol, Hypertension, MA (Treated with thrombolytics) Other Cardiovascular History: stents x4, CABG Respiratory History: Reports: PE, Sleep Apnea Gastrointestinal History: Reports: GERD, Other (See Below) (No past history of diverticulitis to the patient's knowledge) Genitourinary History: Reports: Chronic Renal Insuffiency 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: , 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 (See Below) Other PORK CUTLET MAKER History: vulvular lesion Musculoskeletal History: Reports: Gout, Osteoarthritis Neurological History: Reports: Other (See Below) Other Neuro History: Syncopal Episodes Psychiatric History: Reports: None Endocrine/Metabolic History: Reports: Diabetes, Type II Hematologic History: Reports: Anticoagulation Therapy, Iron Deficiency Other Hematologic History: iron transfusions Immunologic History: Reports: None Oncologic (Cancer) History: Reports: None Dermatologic History: Reports: Psoriasis - Infectious Disease History Infectious Disease History: Reports: None - Past Surgical History HEENT Surgical History: Reports: Cataract Surgery, Eye Surgery Cardiovascular Surgical History: Reports: Coronary Artery Bypass, Coronary Artery Stent Respiratory Surgical History: Reports: None GI Surgical History: Reports: Appendectomy, Cholecystectomy, Colonoscopy Female Surgical History: Reports: Breast Biopsy, Oophorectomy Endocrine Surgical History: Reports: None Social & Family History - Family History Family Medical History: No Pertinent Family History Musculoskeletal: Reports: RA - Caffeine Use Caffeine Use: Reports: Coffee, Soda - Living Situation & Occupation Living situation: Reports: , Alone Occupation: Retired ED ROS GENERAL - Review of Systems Review Of Systems: See Below Constitutional: Denies: Fever, Chills, Malaise, Weakness, Fatigue, Decreased A ppetite, Weight Loss HEENT: Reports: Glasses Respiratory: Reports: Shortness of Breath. Denies: Wheezing, Pleuritic Chest Pain (Occasion.), Cough, Sputum, Hemoptysis Cardiovascular: Reports: Blood Pressure Problem, Dyspnea on Exertion, Edema (Around the ankles at times.). Denies: Chest Pain, Claudication, Lightheadedness, Orthopnea, Palpitations Endocrine: Reports: Fatigue GI/Abdominal: Reports: Abdominal Pain (Complaining of diffuse left lower quadrant abdominal discomfort for several weeks. Associated normal bowel movements). Denies: Hematochezia ( with no blood.), Melena, Nausea, Vomiting : Reports: Frequency, Incontinence (Usually up to 3 times per night to void.), Other ( Mild stress and urge components acute bleeding from the genital area after wiping post voiding this morning.) Musculoskeletal: Reports: Neck Pain, Back Pain, Other (Knees and hips at times as well.) Skin: Reports: Bruising Neurological: Reports: No Symptoms (Bruises easily since she is on Plavix and aspirin) Psychiatric: Reports: No Symptoms Hematologic/Lymphatic: Reports: No Symptoms Immunologic: Reports: No Symptoms ED EXAM, RENAL/ - Physical Exam Exam: See Below Exam Limited By: No Limitations General Appearance: Alert, Anxious, Mild Distress, Other (Temperature is 36.1 with heart rate of 80 and respiratory rate of 16 with O2 sats of 98%. BP 151/74) Eye Exam: Bilateral Eye: Normal Inspection, PERRL Respiratory/Chest: No Respiratory Distress, Lungs Clear, No Accessory Muscle Use, Decreased Breath Sounds GI/Abdominal: Normal Bowel Sounds, Soft, Tender. No: Guarding, Rigid (Oddly tender in the distribution of the sigmoid colon without rebound or guarding), Rebound, Abnormal Bowel Sounds (Female) Exam: Other (Inspection of the vulva shows some pinpoint bleeding sites from the right labia majora in the midline. They are not actively bleeding at this time. There is no blood coming from the urethral meatus with no signs of a carbuncle. The vaginal introitus appears to be normal although atrophied there is no blood obviously in the vagina itself. Bleeding appears to come from prominent vessels on the surface of the right labia majora.) Psychiatric: Normal Affect, Normal Mood Skin Exam: Warm, Dry, Intact, Normal Color Course - Vital Signs Last Recorded V/S: Last Vital Signs Temp 36.1 C 06/02/20 08:50 Pulse 80 06/02/20 08:50 Resp 16 06/02/20 08:50 BP 151/74 H 06/02/20 08:50 Pulse Ox 98 06/02/20 08:50 - Orders/Labs/Meds Labs: Laboratory Tests 06/02/20 Range/Units 10:00 Urine Color Yellow (Yellow) Urine Appearance Clear (Clear) Urine pH 6.0 (5.0-8.0) Ur Specific [place] 1.025 (1.005-1.030) Urine Protein 1+ H (Negative) Urine Glucose (UA) Negative (Negative) Urine Ketones Negative (Negative) Urine Occult Blood 3+ H (Negative) Urine Nitrite Negative (Negative) Urine Bilirubin Negative (Negative) Urine Urobilinogen 0.2 (0.2-1.0) Ur Leukocyte Esterase 1+ H (Negative) Urine RBC 0-5 (0-5) /hpf Urine WBC 0-5 (0-5) /hpf Ur Epithelial Cells Not seen (0-5) /hpf Urine Bacteria Rare (FEW) /hpf Urine Mucus Not seen (FEW) /hpf - Radiology Interpretation Free Text/Narrative:: 80-year-old female presents to the ED for evaluation of bright red blood per genital area this morning after voiding and wiping. Bleeding persisted for a lengthy period of time like over an hour and she placed a washcloth between her panties and her genitals. Upon arrival here there was no obvious source of bleeding and a very small spot only on the washcloth that was present. On inspection it appears that bleeding was coming from 3 prominent small arterioles on the surface of the right labia majora. Similar to varicosities. There was no active bleeding at the time and they were not prominent enough to apply silver nitrate to. She would bleed easily because she is on Eliquis and Plavix. Plan will be just to place topical Vaseline on the area to allow the tissues to heal. There is no clinical evidence of bleeding from the urethral meatus or the vagina. A urinalysis will be obtained. She is mildly tender in the distribution of the left lower quadrant of the abdomen. 1 view of the abdomen will be obtained. - Re-Assessments/Exams Free Text/Narrative Re-Assessment/Exam: 06/02/20 10:00 KUB reveals some increased stool throughout the right hemicolon and minimal stool throughout the left hemicolon. No bowel obstruction is present. 06/02/20 10:25 Urinalysis shows 1+ proteinuria 3+ occult blood and 1+ leukocyte esterase. The the micro is pending. 06/02/20 11:17 Urinalysis shows 1+ leukocyte esterase but 0-5 RBCs and 0-5 white blood cells on the slide. Will be discharged home to apply Vaseline to her labia majora on the right side to protect the skin and try and avoid wiping hard on this area until the skin can heal over prominent vasculature. Departure - Departure Time of Disposition: 11:31 Disposition: Home, Self-Care 01 Condition: Fair Clinical Impression: Vulvar bleeding - Discharge Information *PRESCRIPTION DRUG MONITORING PROGRAM REVIEWED*: Not Applicable *COPY OF PRESCRIPTION DRUG MONITORING REPORT IN PATIENT CARIN: Not Applicable Referrals: Joce Salguero MD [Primary Care Provider] - Forms: ED Department Discharge Additional Instructions: Evaluation in the emergency room this morning in regards to bleeding after voiding this morning and wiping you could not identify where the bleeding was coming from and therefore placed a washcloth between your underwear and over the vulva. On my examination in the ED there was no obvious source of bleeding other than 3 small prominent vessels on the right labia majora which look like they have been recently bleeding. There certainly was no bleeding from the introitus or the vagina. No bleeding from the urethral opening either. Urinalysis showed trace of blood but no signs of any active infection. This is most likely from atrophy. Left lower quadrant abdominal pain is likely coming from low back pain due to degenerative arthritic change and degenerative disc disease in the lower thoracic and upper lumbar spine. The x-ray of the abdomen shows some increased stool in the right hemicolon and across the upper transverse colon only. Suggest treatment to be Vaseline application to the labia majora on the right side every night at bedtime for the next week to try and protect the area. Bleeding was more prominent today due to being on Plavix and Eliquis. If similar symptoms occur the vessels could be cauterized with silver nitrate to stop the bleeding. Sepsis Event Note (ED) - Evaluation Sepsis Screening Result: No Definite Risk - Focused Exam Vital Signs: Vital Signs Temp Pulse Resp BP Pulse Ox 06/02/20 08:50 36.1 C 80 16 151/74 H 98
--- NOTE | 2020-06-02 10:25 | CR ---
Abdomen: Supine view of the abdomen was obtained. Comparison: Prior abdominal x-ray of 02/28/17. Surgical clips are seen within the upper right abdomen. Vascular calcification is noted. Mild scoliosis and degenerative change is noted within the spine. Bowel gas pattern is normal. Impression: 1. Findings as noted above. 2. Nothing acute is definitely appreciated. Diagnostic code #2
== END 2020-06-02 11:45 | disposition home or self-care (01) ==
LOC: JD.ED 08:39
DX: N93.9 Abnormal uterine and vaginal bleeding, unspecified (principal); M54.2 Cervicalgia; M25.561 Pain in right knee; M25.562 Pain in left knee; M25.551 Pain in right hip; M25.552 Pain in left hip; I48.91 Unspecified atrial fibrillation; I25.10 Atherosclerotic heart disease of native coronary artery without angina pectoris; I12.9 Hypertensive chronic kidney disease with stage 1 through stage 4 chronic kidney disease, or unspecified chronic kidney disease; E11.22 Type 2 diabetes mellitus with diabetic chronic kidney disease; N18.9 Chronic kidney disease, unspecified; E78.00 Pure hypercholesterolemia, unspecified; Z79.4 Long term (current) use of insulin; Z79.01 Long term (current) use of anticoagulants; Z91.040 Latex allergy status; Z88.8 Allergy status to other drugs, medicaments and biological substances; Z88.5 Allergy status to narcotic agent; Z79.02 Long term (current) use of antithrombotics/antiplatelets; Z79.899 Other long term (current) drug therapy
CPT/HCPCS: 74018; 74018-26; 81001; 99283; 99284-25

== ENCOUNTER 2020-11-19 04:22 | Emergency (ER) | payer MEDICARE, OTHER, MEDICAID ==
--- NOTE | 2020-11-19 04:31 | EDM.PDOC ---
ED HPI GENERAL MEDICAL PROBLEM - General Chief Complaint: Gastrointestinal Problem Stated Complaint: wilner amb Time Seen by Provider: 11/19/20 04:23 Source of Information: Reports: Patient History Limitations: Reports: No Limitations - History of Present Illness INITIAL COMMENTS - FREE TEXT/NARRATIVE: Patient is an 80-year-old female who got up to go the bathroom at 4:00 this morning and was having severe vertigo and felt off balance at which time she started vomiting. Patient denies any headache any numbness weakness paresthesias any change in her vision or hearing or any neurological symptoms. She states she has had vertigo numerous times in the past but is uncertain what sort of treatment she may have had at those times. She denies any pain currently. She has no other complaints. Onset: Today, Sudden Duration: Getting Worse Location: Reports: Generalized Improves with: Reports: Rest Worsens with: Reports: Movement Associated Symptoms: Reports: Nausea/Vomiting Abdominal Pain Score (Numeric/FACES): 6 - Related Data Allergies Allergy/AdvReac Type Severity Reaction Status Date / Time iodine Allergy Unknown unknown Verified 11/19/20 04:28 latex Allergy Rash, Verified 11/19/20 04:28 Blisters and Skin Sensitivities atorvastatin calcium AdvReac Unknown Muscles Verified 11/19/20 04:28 [From Lipitor] Aches hydromorphone HCl AdvReac Unknown Nausea and Verified 11/19/20 04:28 [From Dilaudid] Vomiting meperidine HCl [From Demerol] AdvReac Unknown Nausea and Verified 11/19/20 04:28 Vomiting Home Meds: Home Meds Calcium Carbonate/Vitamin D3 [Calcium 600 + Vit D 400] 1 mg PO DAILY 08/15/13 [History] Clopidogrel [Plavix] 75 mg PO DAILY 08/15/13 [History] Insulin Detemir [Levemir Flexpen] 0 unit SQ BID 08/15/13 [History] Isosorbide Mononitrate [Imdur] 30 mg PO DAILY 08/15/13 [History] Lutein/Minerals/Vit A,C & E [Ocuvite] 1 tab PO DAILY 08/15/13 [History] Nitroglycerin [Nitroquick] 0.4 mg SL Q5M PRN 08/15/13 [History] [place]-3 Fatty Acids [[place]-3] 2,000 mg PO DAILY 08/15/13 [History] Ubidecarenone [Co Q-10] 100 mg PO DAILY 09/29/13 [History] Glimepiride [Amaryl] 4 mg PO 1700 04/13/17 [History] Metoprolol Tartrate 75 mg PO BID 04/13/17 [History] Clobetasol Propionate [Temovate 0.05% Oint] 15 gm TP BID 11/19/17 [History] Simvastatin [Zocor] 40 mg PO BEDTIME 11/19/17 [History] calcitrioL [Rocaltrol] 0.25 mcg PO DAILY 11/19/17 [History] Ezetimibe 10 mg PO DAILY 02/14/19 [History] Apixaban [Eliquis] 2.5 mg PO BID 02/08/20 [History] Furosemide 20 mg PO DAILY 02/08/20 [History] Meclizine [Antivert] 25 mg PO TID PRN #14 tab 11/19/20 [Rx] Metoclopramide [Reglan] 5 mg PO Q8H PRN #20 tab 11/19/20 [Rx] Past Medical History HEENT History: Reports: Impaired Vision Other HEENT History: wears eyeglasses Cardiovascular History: Reports: CAD, High Cholesterol, Hypertension, [place] Other Cardiovascular History: stents x4, CABG Respiratory History: Reports: PE, Sleep Apnea Gastrointestinal History: Reports: GERD Genitourinary History: Reports: Chronic Renal Insuffiency 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: , 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 (See Below) Other CRYSTAL MACHINING COORDINATOR History: vulvular lesion Musculoskeletal History: Reports: Gout, Osteoarthritis Neurological History: Reports: Other (See Below) Other Neuro History: Syncopal Episodes Psychiatric History: Reports: None Endocrine/Metabolic History: Reports: Diabetes, Type II Hematologic History: Reports: Anticoagulation Therapy, Iron Deficiency Other Hematologic History: iron transfusions Immunologic History: Reports: None Oncologic (Cancer) History: Reports: None Dermatologic History: Reports: Psoriasis - Infectious Disease History Infectious Disease History: Reports: None - Past Surgical History Head Surgeries/Procedures: Reports: None HEENT Surgical History: Reports: Cataract Surgery, Eye Surgery Other HEENT Surgeries/Procedures: both eyes had surgery jan 2012, laser surgery 2014 Cardiovascular Surgical History: Reports: Coronary Artery Bypass, Coronary Artery Stent Respiratory Surgical History: Reports: None GI Surgical History: Reports: Appendectomy, Cholecystectomy, Colonoscopy Female Surgical History: Reports: Breast Biopsy, Oophorectomy Other Female Surgeries/Procedures: lumpectomy to L breast Endocrine Surgical History: Reports: None Neurological Surgical History: Reports: None Musculoskeletal Surgical History: Reports: None Oncologic Surgical History: Reports: None Social & Family History - Family History Family Medical History: No Pertinent Family History Musculoskeletal: Reports: RA - Caffeine Use Caffeine Use: Reports: Coffee, Soda - Living Situation & Occupation Living situation: Reports: , Alone Occupation: Retired ED ROS GENERAL - Review of Systems Review Of Systems: Comprehensive ROS is negative, except as noted in HPI. ED EXAM, GI/ABD - Physical Exam Exam: See Below Exam Limited By: No Limitations General Appearance: Alert, Mild Distress Eyes: Right: Nystagmus (Positive right gaze nystagmus reproducing vertigo symptoms.) Head: Atraumatic, Normocephalic Neck: Normal Inspection, Supple Respiratory/Chest: No Respiratory Distress, Lungs Clear, Normal Breath Sounds Cardiovascular: Regular Rate, Rhythm, No JVD GI/Abdominal Exam: Normal Bowel Sounds, Soft, Non-Tender, No Distention Extremities: Normal Inspection Neurological: Alert, Oriented, CN II-XII Intact, Normal Cognition Psychiatric: Normal Affect, Normal Mood Skin Exam: Warm, Dry, Normal Color Course - Vital Signs Text/Narrative:: Patient received 2 5 mg doses of Reglan IV and 25 mg of meclizine p.o. after which her vertigo is controlled but she is feeling very sleepy. Patient also received her p.o. metoprolol which she takes in the morning. Her initial blood pressure was very elevated. I am discharging her home with prescriptions for both Reglan and meclizine. She is to return to emergency department if worse follow-up with her PCP if her symptoms continue or she does not feel she is improving. Last Recorded V/S: Last Vital Signs Temp 98.5 F 11/19/20 04:28 Pulse 71 11/19/20 05:31 Resp 18 11/19/20 04:28 BP 130/81 11/19/20 05:31 Pulse Ox 95 11/19/20 04:28 - Orders/Labs/Meds Meds: Medications Discontinued Medications Generic Name Dose Route Start Last Admin Trade Name Freq PRN Reason Stop Dose Admin Meclizine HCl 25 mg 11/19/20 04:42 11/19/20 04:47 Meclizine 12.5 Mg Tab PO 11/19/20 04:43 25 mg ONETIME ONE Administration Metoclopramide HCl 5 mg 11/19/20 04:42 11/19/20 04:47 Metoclopramide 10 Mg/2 Ml Sdv IVPUSH 11/19/20 04:43 5 mg ONETIME ONE Administration Metoclopramide HCl 5 mg 11/19/20 05:16 11/19/20 05:23 Metoclopramide 10 Mg/2 Ml Sdv IVPUSH 11/19/20 05:17 5 mg ONETIME ONE Administration Metoprolol Tartrate 75 mg 11/19/20 05:14 11/19/20 05:31 Metoprolol Tartrate 25 Mg Tab PO 11/19/20 05:15 75 mg ONETIME ONE Administration Departure - Departure Time of Disposition: 05:52 Disposition: Home, Self-Care 01 Condition: Good Clinical Impression: Positional vertigo, Vomiting bile - Discharge Information Instructions: Vertigo, [id number] Referrals: Joce Salguero MD [Primary Care Provider] - Forms: ED Department Discharge Additional Instructions: Reglan and meclizine as needed. Return to ER symptoms are worse. Follow-up with PCP if symptoms continue. Sepsis Event Note (ED) - Focused Exam Vital Signs: Vital Signs Temp Pulse Pulse Resp BP BP Pulse Ox 11/19/20 05:31 71 130/81 11/19/20 04:28 98.5 F 97 18 182/107 H 95
[2020-11-19] MEDS ORDERED: Metoclopramide 10 MG/2 ML SDV IVPUSH ONE ×2 (04:42→05:16)
[2020-11-19] MEDS ORDERED: Meclizine 12.5 MG Tab PO ONE (04:42)
[2020-11-19] MEDS ORDERED: Metoprolol Tartrate 25 MG Tab PO ONE (05:14)
[2020-11-19 05:32] VITALS: BP 130/81; PULSE 71
== END 2020-11-19 06:19 | disposition home or self-care (01) ==
LOC: SUPCPDRO 04:22 → JD.ED 04:22
DX: R11.14 Bilious vomiting (principal); H81.10 Benign paroxysmal vertigo, unspecified ear; I25.10 Atherosclerotic heart disease of native coronary artery without angina pectoris; E78.00 Pure hypercholesterolemia, unspecified; I12.9 Hypertensive chronic kidney disease with stage 1 through stage 4 chronic kidney disease, or unspecified chronic kidney disease; E11.22 Type 2 diabetes mellitus with diabetic chronic kidney disease; N18.9 Chronic kidney disease, unspecified; I25.2 Old myocardial infarction; M10.9 Gout, unspecified; Z86.711 Personal history of pulmonary embolism; Z79.01 Long term (current) use of anticoagulants; Z88.8 Allergy status to other drugs, medicaments and biological substances; Z91.040 Latex allergy status; Z88.5 Allergy status to narcotic agent; Z79.4 Long term (current) use of insulin; Z79.02 Long term (current) use of antithrombotics/antiplatelets; Z79.899 Other long term (current) drug therapy
CPT/HCPCS: 96374; 96376; 99283; A9270; J2765

== ENCOUNTER 2021-06-27 08:13 | Emergency (ER) | payer MEDICARE, OTHER, MEDICAID ==
[2021-06-27] MEDS ORDERED: Ondansetron 4 MG/2 ML SDV IVPUSH ONE (08:56)
[2021-06-27] MEDS ORDERED: Sodium Chloride 0.9% 10 ML Syringe FLUSH PRN (08:56)
[2021-06-27] MEDS ORDERED: Sodium Chloride 0.9% 1,000 ML IV SCH (09:00)
[2021-06-27] MEDS ORDERED: Pantoprazole 40 MG Vial IVPUSH ONE (13:46)
[2021-06-27] MEDS ORDERED: Cyanocobalamin (Vitamin B12) 1,000 MCG/ML SDV IM ONE (13:46)
[2021-06-27 14:00] VITALS: BP 120/69; PULSE 62
== END 2021-06-27 14:25 | disposition home or self-care (01) ==
LOC: JD.ED 08:13
DX: K44.9 Diaphragmatic hernia without obstruction or gangrene (principal); D51.8 Other vitamin B12 deficiency anemias; I12.9 Hypertensive chronic kidney disease with stage 1 through stage 4 chronic kidney disease, or unspecified chronic kidney disease; E11.22 Type 2 diabetes mellitus with diabetic chronic kidney disease; N18.9 Chronic kidney disease, unspecified; I25.10 Atherosclerotic heart disease of native coronary artery without angina pectoris; E78.00 Pure hypercholesterolemia, unspecified; I25.2 Old myocardial infarction; K21.9 Gastro-esophageal reflux disease without esophagitis; M10.9 Gout, unspecified; Z88.8 Allergy status to other drugs, medicaments and biological substances; Z91.040 Latex allergy status; Z88.5 Allergy status to narcotic agent; Z79.4 Long term (current) use of insulin; Z79.01 Long term (current) use of anticoagulants; Z79.899 Other long term (current) drug therapy
CPT/HCPCS: 36415; 71045; 74176; 76775; 80053; 81001; 82607; 82746; 83540; 83690; 84466; 84484; 85025; 86140; 93005; 96372; 96374; 96375; 99284; C9113; J2405; J3420; J7030; 93010; 99285

== ENCOUNTER 2022-01-31 16:51 | Emergency (ER) | payer MEDICARE, OTHER, MEDICAID ==
[2022-01-31] MEDS ORDERED: EPINEPHrine 1 MG/ML SDV IM PRN (17:58)
[2022-01-31] MEDS ORDERED: diphenhydrAMINE 50 MG/ML SDV IVPUSH PRN (17:58)
[2022-01-31] MEDS ORDERED: Famotidine 20 MG/2 ML SDV IVPUSH PRN (17:58)
[2022-01-31] MEDS ORDERED: methylPREDNISolone Sodium Succinate 125 MG/2 ML SDV IVPUSH PRN (17:58)
[2022-01-31] MEDS ORDERED: Sodium Chloride 0.9% 10 ML Syringe FLUSH PRN (17:58)
[2022-01-31] MEDS ORDERED: Sodium Chloride 0.9% 10 ML Syringe FLUSH SCH (18:00)
[2022-01-31 19:10] LABS: ESTIMATED GFR 15 mL/min (>60)
[2022-01-31 20:38] VITALS: BP 109/79; PULSE 72
== END 2022-01-31 20:40 | disposition home or self-care (01) ==
LOC: JD.ED 16:51
DX: U07.1 COVID-19 (principal); E87.1 Hypo-osmolality and hyponatremia; Z88.8 Allergy status to other drugs, medicaments and biological substances; Z91.040 Latex allergy status; Z88.5 Allergy status to narcotic agent; E78.00 Pure hypercholesterolemia, unspecified; I25.2 Old myocardial infarction; I25.10 Atherosclerotic heart disease of native coronary artery without angina pectoris; I12.9 Hypertensive chronic kidney disease with stage 1 through stage 4 chronic kidney disease, or unspecified chronic kidney disease; K21.9 Gastro-esophageal reflux disease without esophagitis; E11.22 Type 2 diabetes mellitus with diabetic chronic kidney disease; N18.9 Chronic kidney disease, unspecified; Z79.02 Long term (current) use of antithrombotics/antiplatelets; Z79.899 Other long term (current) drug therapy
CPT/HCPCS: 36415; 70450; 71250; 72125; 80053; 85025; 86140; 99284; M0222; Q0222; 99283

== ENCOUNTER 2022-02-04 21:00 | Emergency (ER) | payer MEDICARE, OTHER, MEDICAID ==
[2022-02-04 21:15] VITALS: BP 115/101; PULSE 76
== END 2022-02-04 22:32 | disposition home or self-care (01) ==
LOC: JD.ED 21:00
DX: U07.1 COVID-19 (principal); I25.10 Atherosclerotic heart disease of native coronary artery without angina pectoris; I10 Essential (primary) hypertension; E11.9 Type 2 diabetes mellitus without complications; E66.9 Obesity, unspecified; Z68.31 Body mass index [BMI] 31.0-31.9, adult; Z91.041 Radiographic dye allergy status; Z91.040 Latex allergy status; Z88.8 Allergy status to other drugs, medicaments and biological substances; Z79.899 Other long term (current) drug therapy; Z79.01 Long term (current) use of anticoagulants; Z90.49 Acquired absence of other specified parts of digestive tract; Z87.891 Personal history of nicotine dependence
CPT/HCPCS: 99282; 99284

== ENCOUNTER 2022-03-20 12:46 | Emergency (ER) | payer MEDICARE, OTHER, MEDICAID ==
[2022-03-20] MEDS ORDERED: Sodium Chloride 0.9% 10 ML Syringe FLUSH PRN (13:13)
[2022-03-20] MEDS ORDERED: Sodium Chloride 0.9% 1,000 ML IV ONE (14:20)
[2022-03-20] MEDS ORDERED: Tamsulosin 0.4 MG Cap.ER PO ONE (14:20)
[2022-03-20] MEDS ORDERED: Cefdinir 300 MG Cap PO ONE (17:14)
[2022-03-20 17:55] VITALS: BP 118/71; PULSE 65
== END 2022-03-20 17:50 | disposition home or self-care (01) ==
LOC: JD.ED 12:46
DX: R53.1 Weakness (principal); I25.10 Atherosclerotic heart disease of native coronary artery without angina pectoris; I10 Essential (primary) hypertension; E11.9 Type 2 diabetes mellitus without complications; E66.9 Obesity, unspecified; Z68.30 Body mass index [BMI] 30.0-30.9, adult; Z91.041 Radiographic dye allergy status; Z91.040 Latex allergy status; Z88.6 Allergy status to analgesic agent; Z88.8 Allergy status to other drugs, medicaments and biological substances; Z79.899 Other long term (current) drug therapy; Z79.4 Long term (current) use of insulin; Z79.01 Long term (current) use of anticoagulants; Z90.49 Acquired absence of other specified parts of digestive tract
CPT/HCPCS: 36415; 71046; 80053; 81001; 83880; 84484; 85007; 85027; 85379; 85610; 85730; 87086; 93005; 96360; 96361; 99284; A9270; J3490; J7030

== ENCOUNTER 2022-08-04 13:48 | Emergency (ER) | payer MEDICARE, OTHER, MEDICAID ==
[2022-08-04] MEDS ORDERED: Sodium Chloride 0.9% 10 ML Syringe FLUSH PRN (13:52)
[2022-08-04 17:57] VITALS: BP 122/86; PULSE 86
== END 2022-08-04 16:30 | disposition home or self-care (01) ==
LOC: JD.ED 13:48
DX: R55 Syncope and collapse (principal); I12.9 Hypertensive chronic kidney disease with stage 1 through stage 4 chronic kidney disease, or unspecified chronic kidney disease; N18.9 Chronic kidney disease, unspecified; I25.2 Old myocardial infarction; E78.00 Pure hypercholesterolemia, unspecified; I25.10 Atherosclerotic heart disease of native coronary artery without angina pectoris; E66.9 Obesity, unspecified; Z91.041 Radiographic dye allergy status; Z91.040 Latex allergy status; Z88.5 Allergy status to narcotic agent; Z79.01 Long term (current) use of anticoagulants; Z79.899 Other long term (current) drug therapy; Z79.4 Long term (current) use of insulin; Z87.891 Personal history of nicotine dependence; Z68.29 Body mass index [BMI] 29.0-29.9, adult
CPT/HCPCS: 36415; 70450; 73502; 80053; 83735; 84484; 85025; 93005; 99285; J3490; 93010; 99283

== ENCOUNTER 2022-09-24 15:53 | Emergency (ER) | payer MEDICARE, OTHER, MEDICAID ==
[2022-09-24 16:21] VITALS: BP 139/100; PULSE 66
[2022-09-24 17:04] LABS: BASOPHILS ABSOLUTE AUTO 0.01 K/mm3 (0.01-0.08); BASOPHILS PERCENT AUTO 0.2 % (0.1-1.2); EOSINOPHILS ABSOLUTE AUTO 0.06 K/mm3 (0.04-0.36); EOSINOPHILS PERCENT AUTO 1.1 (0.7-5.8); HEMATOCRIT 34.1 % (34.1-44.9); HEMOGLOBIN 10.8 gm/dl (11.2-15.7); IMMATURE GRAN ABSOLUTE AUTO 0.03 K/mm3 (0.00-0.10); IMMATURE GRAN PERCENT AUTO 0.5 % (<=1.0); LYMPHOCYTES ABSOLUTE AUTO 1.28 K/mm3 (1.18-3.74); LYMPHOCYTES PERCENT AUTO 22.8 % (19.3-51.7); MEAN CORPUSCULAR HEMOGLOBIN 28.3 pg (25.6-32.2); MEAN CORPUSCULAR HGB CONC 31.7 g/dl (32.2-35.5); MEAN CORPUSCULAR VOLUME 89.3 fl (79.4-94.8); MEAN PLATELET VOLUME 10.3 fl (9.4-12.3); MONOCYTES ABSOLUTE AUTO 0.49 K/mm3 (0.24-0.36); MONOCYTES PERCENT AUTO 8.7 % (4.7-12.5); NEUTROPHILS ABSOLUTE AUTO 3.75 K/mm3 (1.56-6.13); NEUTROPHILS PERCENT AUTO 66.7 % (34.0-71.1); PLATELET COUNT,PLT 227 K/mm3 (182-369); RED BLOOD CELL COUNT 3.82 M/mm3 (3.98-5.22); WHITE BLOOD CELL COUNT,WBC 5.62 K/mm3 (3.98-10.04)
[2022-09-24] MEDS ORDERED: Furosemide 40 MG/4 ML VIAL IVPUSH ONE (17:25)
[2022-09-24 17:36] LABS: A/G RATIO 0.6 (1-2); ALBUMIN 2.4 g/dl (3.4-5.0); ANION GAP 16.5 (5-15); BILIRUBIN TOTAL 0.5 mg/dL (0.2-1.0); BUN/CREATININE RATIO 24.2 (14-18); CALCIUM 8.9 mg/dL (8.5-10.1); CREATININE 3.1 mg/dL (0.55-1.02); EST CRCL DRUG DOSING (CG) 11.87 mL/min; POTASSIUM,K 4.5 mEq/L (3.5-5.1); PROTEIN TOTAL,TP 6.7 g/dl (6.4-8.2)
[2022-09-24] MEDS ORDERED: Bumetanide 1 MG/4 ML MDV IVPUSH ONE (18:43)
== END 2022-09-24 19:51 | disposition home or self-care (01) ==
LOC: JD.ED 15:53
DX: R60.0 Localized edema (principal); I25.10 Atherosclerotic heart disease of native coronary artery without angina pectoris; E78.00 Pure hypercholesterolemia, unspecified; I12.9 Hypertensive chronic kidney disease with stage 1 through stage 4 chronic kidney disease, or unspecified chronic kidney disease; N18.9 Chronic kidney disease, unspecified; M10.9 Gout, unspecified; I25.2 Old myocardial infarction; E11.9 Type 2 diabetes mellitus without complications; E66.9 Obesity, unspecified; Z68.26 Body mass index [BMI] 26.0-26.9, adult; Z86.16 Personal history of COVID-19; Z95.0 Presence of cardiac pacemaker; Z91.041 Radiographic dye allergy status; Z91.040 Latex allergy status; Z88.5 Allergy status to narcotic agent; Z88.8 Allergy status to other drugs, medicaments and biological substances; Z79.01 Long term (current) use of anticoagulants
CPT/HCPCS: 36415; 80053; 83880; 85025; 96374; 99284; J3490

== ENCOUNTER 2022-10-09 07:07 | Emergency (ER) | payer MEDICARE, OTHER, MEDICAID ==
[2022-10-09] MEDS ORDERED: Sodium Chloride 0.9% 10 ML Syringe FLUSH PRN (07:32)
[2022-10-09] MEDS ORDERED: Sodium Chloride 0.9% 1,000 ML IV SCH (07:45)
[2022-10-09 08:01] LABS: BASOPHILS ABSOLUTE AUTO 0.01 K/mm3 (0.01-0.08); BASOPHILS PERCENT AUTO 0.2 % (0.1-1.2); EOSINOPHILS ABSOLUTE AUTO 0.07 K/mm3 (0.04-0.36); EOSINOPHILS PERCENT AUTO 1.2 (0.7-5.8); IMMATURE GRAN ABSOLUTE AUTO 0.02 K/mm3 (0.00-0.10); IMMATURE GRAN PERCENT AUTO 0.3 % (<=1.0); LYMPHOCYTES ABSOLUTE AUTO 1.64 K/mm3 (1.18-3.74); MEAN CORPUSCULAR HEMOGLOBIN 27.8 pg (25.6-32.2); MEAN CORPUSCULAR HGB CONC 32.9 g/dl (32.2-35.5); MEAN PLATELET VOLUME 10.6 fl (9.4-12.3); MONOCYTES ABSOLUTE AUTO 0.43 K/mm3 (0.24-0.36); MONOCYTES PERCENT AUTO 7.4 % (4.7-12.5); NEUTROPHILS ABSOLUTE AUTO 3.68 K/mm3 (1.56-6.13); NEUTROPHILS PERCENT AUTO 62.9 % (34.0-71.1); PLATELET COUNT,PLT 201 K/mm3 (182-369); RED BLOOD CELL COUNT 4.49 M/mm3 (3.98-5.22); WHITE BLOOD CELL COUNT,WBC 5.85 K/mm3 (3.98-10.04)
[2022-10-09 08:07] LABS: HEMOGLOBIN 12.5 gm/dl (11.2-15.7); MEAN CORPUSCULAR VOLUME 84.6 fl (79.4-94.8)
[2022-10-09 08:27] LABS: A/G RATIO 0.6 (1-2); ALBUMIN 2.7 g/dl (3.4-5.0); ANION GAP 15.1 (5-15); BILIRUBIN TOTAL 0.8 mg/dL (0.2-1.0); CALCIUM 9.2 mg/dL (8.5-10.1); CREATININE 3.7 mg/dL (0.55-1.02); EST CRCL DRUG DOSING (CG) 9.95 mL/min; POTASSIUM,K 3.1 mEq/L (3.5-5.1); PROTEIN TOTAL,TP 7.5 g/dl (6.4-8.2)
[2022-10-09 09:07] LABS: APPEARANCE,URINE CLEAR (Clear); BILIRUBIN,URINE NEGATIVE (Negative); COLOR,URINE LIGHT YELLOW (Yellow); GLUCOSE,URINE NEGATIVE (Negative); KETONES,URINE NEGATIVE (Negative); LEUKOCYTE ESTERASE,URINE NEGATIVE (Negative); NITRITE,URINE NEGATIVE (Negative); OCCULT BLOOD,URINE TRACE-LYSED (Negative); PH,URINE 6.5 (5.0-8.0); PROTEIN,URINE 2+ (Negative); UROBILINOGEN,URINE 0.2 (0.2-1.0)
[2022-10-09 09:44] LABS: BACTERIA,URINE NOT SEEN /hpf (FEW); EPITHELIAL CELLS,URINE 0-5 /hpf (0-5); MUCUS,URINE NOT SEEN /hpf (FEW); RBC,URINE 0-5 /hpf (0-5); WBC,URINE 0-5 /hpf (0-5)
[2022-10-09 11:29] LABS: ANION GAP 15.2 (5-15); BUN/CREATININE RATIO 30.3 (14-18); CALCIUM 9.2 mg/dL (8.5-10.1); CREATININE 3.7 mg/dL (0.55-1.02); EST CRCL DRUG DOSING (CG) 9.95 mL/min; POTASSIUM,K 3.2 mEq/L (3.5-5.1)
[2022-10-09] MEDS ORDERED: Potassium Chloride 10 MEQ in Premix Bag 1 BAG IV SCH (13:00)
[2022-10-09] MEDS ORDERED: Potassium Chloride 20 MEQ Tab.ER PO ONE (13:26)
[2022-10-09 15:01] VITALS: BP 160/70; PULSE 80
== END 2022-10-09 13:45 | disposition home or self-care (01) ==
LOC: JD.ED 07:07
DX: E87.6 Hypokalemia (principal); R77.8 Other specified abnormalities of plasma proteins; I12.9 Hypertensive chronic kidney disease with stage 1 through stage 4 chronic kidney disease, or unspecified chronic kidney disease; E11.22 Type 2 diabetes mellitus with diabetic chronic kidney disease; N18.9 Chronic kidney disease, unspecified; E78.00 Pure hypercholesterolemia, unspecified; I25.10 Atherosclerotic heart disease of native coronary artery without angina pectoris; I25.2 Old myocardial infarction; E66.9 Obesity, unspecified; Z68.30 Body mass index [BMI] 30.0-30.9, adult; Z79.01 Long term (current) use of anticoagulants; Z86.16 Personal history of COVID-19; Z88.8 Allergy status to other drugs, medicaments and biological substances; Z91.041 Radiographic dye allergy status; Z88.5 Allergy status to narcotic agent; Z79.899 Other long term (current) drug therapy; Z79.02 Long term (current) use of antithrombotics/antiplatelets; Z86.711 Personal history of pulmonary embolism
CPT/HCPCS: 36415; 80048; 80053; 81001; 84484; 85025; 93005; 96361; 96374; 99285; A9270; J3480; J3490; J7030

== ENCOUNTER 2022-11-05 09:01 | Inpatient (IN) | payer MEDICARE, OTHER ==
[2022-11-05] MEDS ORDERED: Sodium Chloride 0.9% 10 ML Syringe FLUSH PRN (09:12)
[2022-11-05] MEDS ORDERED: Sodium Chloride 0.9% 1,000 ML IV SCH ×3 (09:15→15:30)
[2022-11-05 09:33] LABS: BASOPHILS ABSOLUTE AUTO 0.01 K/mm3 (0.01-0.08); BASOPHILS PERCENT AUTO 0.2 % (0.1-1.2); EOSINOPHILS ABSOLUTE AUTO 0.07 K/mm3 (0.04-0.36); EOSINOPHILS PERCENT AUTO 1.1 (0.7-5.8); HEMATOCRIT 37.9 % (34.1-44.9); HEMOGLOBIN 12.2 gm/dl (11.2-15.7); IMMATURE GRAN ABSOLUTE AUTO 0.03 K/mm3 (0.00-0.10); IMMATURE GRAN PERCENT AUTO 0.5 % (<=1.0); LYMPHOCYTES ABSOLUTE AUTO 2.37 K/mm3 (1.18-3.74); LYMPHOCYTES PERCENT AUTO 37.2 % (19.3-51.7); MEAN CORPUSCULAR HEMOGLOBIN 27.5 pg (25.6-32.2); MEAN CORPUSCULAR HGB CONC 32.2 g/dl (32.2-35.5); MEAN CORPUSCULAR VOLUME 85.4 fl (79.4-94.8); MEAN PLATELET VOLUME 10.8 fl (9.4-12.3); MONOCYTES PERCENT AUTO 9.4 % (4.7-12.5); NEUTROPHILS ABSOLUTE AUTO 3.29 K/mm3 (1.56-6.13); NEUTROPHILS PERCENT AUTO 51.6 % (34.0-71.1); PLATELET COUNT,PLT 235 K/mm3 (182-369); RED BLOOD CELL COUNT 4.44 M/mm3 (3.98-5.22); WHITE BLOOD CELL COUNT,WBC 6.37 K/mm3 (3.98-10.04)
[2022-11-05 09:52] LABS: PTT,PARTIAL THROMBOPLSTIN TIME 26.5 SECONDS (21.7-31.4)
[2022-11-05 09:56] LABS: A/G RATIO 0.6 (1-2); ALANINE AMINOTRANSFERASE,ALT 22 U/L (14-59); ALBUMIN 2.9 g/dl (3.4-5.0); ALKALINE PHOSPHATASE 98 U/L (46-116); ANION GAP 18.2 (5-15); ASPARTATE AMNIOTRANSFERASE,AST 16 U/L (15-37); BILIRUBIN TOTAL 0.6 mg/dL (0.2-1.0); BLOOD UREA NITROGEN,BUN 110 mg/dL (7-18); BUN/CREATININE RATIO 27.5 (14-18); C-REACTIVE PROTEIN 0.4 mg/dL (<1.0); CALCIUM 9.1 mg/dL (8.5-10.1); CARBON DIOXIDE,CO2 24 mEq/L (21-32); CHLORIDE,CL 87 mEq/L (98-107); ESTIMATED GFR 11 mL/min (>60); GLUCOSE RANDOM 175 mg/dL (70-99); MAGNESIUM 1.9 mg/dL (1.8-2.4); POTASSIUM,K 3.2 mEq/L (3.5-5.1); SODIUM,NA 126 mEq/L (136-145); TROPONIN I HIGH SENSITIVITY 49 pg/mL (<=51)
[2022-11-05 10:20] LABS: INR 1.02; PROTHROMBIN TIME 10.9 SECONDS (9.7-12.0)
[2022-11-05] MEDS ORDERED: Meclizine 12.5 MG Tab PO ONE (11:28)
[2022-11-05 11:50] LABS: APPEARANCE,URINE CLEAR (Clear); BILIRUBIN,URINE NEGATIVE (Negative); COLOR,URINE YELLOW (Yellow); GLUCOSE,URINE NEGATIVE (Negative); KETONES,URINE NEGATIVE (Negative); LEUKOCYTE ESTERASE,URINE NEGATIVE (Negative); NITRITE,URINE NEGATIVE (Negative); OCCULT BLOOD,URINE NEGATIVE (Negative); PH,URINE 6.5 (5.0-8.0); PROTEIN,URINE 2+ (Negative); UROBILINOGEN,URINE 0.2 (0.2-1.0)
[2022-11-05 12:44] LABS: BACTERIA,URINE RARE /hpf (FEW); EPITHELIAL CELLS,URINE 0-5 /hpf (0-5); MUCUS,URINE RARE /hpf (FEW); RBC,URINE 0-5 /hpf (0-5); WBC,URINE 0-5 /hpf (0-5)
[2022-11-05] MEDS ORDERED: Potassium Chloride 20 MEQ Tab.ER PO ONE (12:59)
[2022-11-05] MEDS ORDERED: Polyethylene Glycol 3350 Powder 17 GM Packet PO PRN (13:18)
[2022-11-05] MEDS ORDERED: Docusate Sodium 100 MG Cap PO PRN (13:18)
[2022-11-05] MEDS ORDERED: Ondansetron 4 MG/2 ML SDV IV PRN (13:18)
[2022-11-05] MEDS ORDERED: Calcium Carbonate 500 MG Tab.Chew PO PRN (14:46)
[2022-11-05] MEDS ORDERED: oxyCODONE 5 MG Tab PO PRN (14:47)
[2022-11-05] MEDS: Insulin Lispro 100 Unit/ML 3 ML KwikPen SUBCUT SCH ×2 (17:48→21:22)
[2022-11-05] MEDS: Cetirizine 10 MG Tab PO SCH (17:50)
[2022-11-05] MEDS: Mycophenolate Mofetil 250 MG Cap PO SCH (17:50)
[2022-11-05] MEDS ORDERED: Insulin Glargine,Human Rec. Analog 100 Units/ML 3 ML Pen SUBCUT SCH (21:00)
[2022-11-05] MEDS ORDERED: Lactulose Soln 10 GM/15 ML 30 ML UD Cup PO SCH (21:00)
[2022-11-05] MEDS: Metoprolol Tartrate 50 MG Tab PO SCH (21:18)
[2022-11-05] MEDS: Apixaban 2.5 MG Tab PO SCH (21:18)
[2022-11-05] MEDS: Insulin Glargine,Human Rec. Analog 100 Units/ML 3 ML Pen SUBCUT SCH (21:19)
[2022-11-05] MEDS: Sodium Bicarbonate 650 MG Tab PO SCH (21:22)
[2022-11-05] MEDS: Acetaminophen 325 MG Tab PO PRN (22:48)
[2022-11-06 06:15] LABS: EOSINOPHILS ABSOLUTE AUTO 0.06 K/mm3 (0.04-0.36); EOSINOPHILS PERCENT AUTO 1.2 (0.7-5.8); HEMATOCRIT 34.2 % (34.1-44.9); HEMOGLOBIN 10.9 gm/dl (11.2-15.7); IMMATURE GRAN ABSOLUTE AUTO 0.02 K/mm3 (0.00-0.10); IMMATURE GRAN PERCENT AUTO 0.4 % (<=1.0); LYMPHOCYTES ABSOLUTE AUTO 1.46 K/mm3 (1.18-3.74); MEAN CORPUSCULAR HEMOGLOBIN 27.6 pg (25.6-32.2); MEAN CORPUSCULAR HGB CONC 31.9 g/dl (32.2-35.5); MEAN CORPUSCULAR VOLUME 86.6 fl (79.4-94.8); MEAN PLATELET VOLUME 10.9 fl (9.4-12.3); MONOCYTES ABSOLUTE AUTO 0.58 K/mm3 (0.24-0.36); MONOCYTES PERCENT AUTO 11.9 % (4.7-12.5); NEUTROPHILS ABSOLUTE AUTO 2.74 K/mm3 (1.56-6.13); NEUTROPHILS PERCENT AUTO 56.5 % (34.0-71.1); PLATELET COUNT,PLT 208 K/mm3 (182-369); RED BLOOD CELL COUNT 3.95 M/mm3 (3.98-5.22); WHITE BLOOD CELL COUNT,WBC 4.86 K/mm3 (3.98-10.04)
[2022-11-06 06:45] LABS: A/G RATIO 0.6 (1-2); ALBUMIN 2.7 g/dl (3.4-5.0); ANION GAP 16.2 (5-15); BILIRUBIN TOTAL 0.6 mg/dL (0.2-1.0); BUN/CREATININE RATIO 27.1 (14-18); CALCIUM 9.1 mg/dL (8.5-10.1); CREATININE 4.1 mg/dL (0.55-1.02); EST CRCL DRUG DOSING (CG) 8.98 mL/min; MAGNESIUM 2.1 mg/dL (1.8-2.4); POTASSIUM,K 3.2 mEq/L (3.5-5.1); PROTEIN TOTAL,TP 7.1 g/dl (6.4-8.2)
[2022-11-06] MEDS: Insulin Lispro 100 Unit/ML 3 ML KwikPen SUBCUT SCH ×4 (08:36→21:13)
[2022-11-06] MEDS: Apixaban 2.5 MG Tab PO SCH ×2 (08:36→20:56)
[2022-11-06] MEDS: Sodium Bicarbonate 650 MG Tab PO SCH ×2 (08:36→20:58)
[2022-11-06] MEDS: Mycophenolate Mofetil 250 MG Cap PO SCH ×2 (08:37→17:24)
[2022-11-06] MEDS: Metoprolol Tartrate 50 MG Tab PO SCH ×2 (08:37→20:56)
[2022-11-06] MEDS: Calcitriol 0.25 MCG Cap PO SCH (08:42)
[2022-11-06] MEDS ORDERED: Potassium Chloride 20 MEQ Tab.ER PO ONE (09:00)
[2022-11-06] MEDS ORDERED: Chlorthalidone 25 MG Tab PO ONE (09:30)
[2022-11-06] MEDS: NS + KCl 20mEq/L 1,000 ML IV SCH (11:08)
[2022-11-06] MEDS: Cetirizine 10 MG Tab PO SCH (17:24)
[2022-11-06] MEDS ORDERED: Melatonin 3 MG Tab PO PRN (21:00)
[2022-11-06] MEDS ORDERED: Lactulose Soln 10 GM/15 ML 30 ML UD Cup PO SCH (21:00)
[2022-11-06] MEDS: Insulin Glargine,Human Rec. Analog 100 Units/ML 3 ML Pen SUBCUT SCH (21:15)
[2022-11-07] MEDS: NS + KCl 20mEq/L 1,000 ML IV SCH (00:10)
[2022-11-07] MEDS: Non-Formulary Medication 1 Each (Clobetasol [Temovate 0.05%] 25 ML Bottle) TOP SCH ×2 (01:21→01:58)
[2022-11-07 05:30] LABS: BASOPHILS ABSOLUTE AUTO 0.01 K/mm3 (0.01-0.08); BASOPHILS PERCENT AUTO 0.2 % (0.1-1.2); EOSINOPHILS PERCENT AUTO 1.9 (0.7-5.8); HEMATOCRIT 33.5 % (34.1-44.9); HEMOGLOBIN 10.6 gm/dl (11.2-15.7); IMMATURE GRAN ABSOLUTE AUTO 0.02 K/mm3 (0.00-0.10); IMMATURE GRAN PERCENT AUTO 0.4 % (<=1.0); LYMPHOCYTES PERCENT AUTO 30.1 % (19.3-51.7); MEAN CORPUSCULAR HEMOGLOBIN 27.8 pg (25.6-32.2); MEAN CORPUSCULAR HGB CONC 31.6 g/dl (32.2-35.5); MEAN CORPUSCULAR VOLUME 87.9 fl (79.4-94.8); MEAN PLATELET VOLUME 10.9 fl (9.4-12.3); MONOCYTES ABSOLUTE AUTO 0.45 K/mm3 (0.24-0.36); MONOCYTES PERCENT AUTO 8.5 % (4.7-12.5); NEUTROPHILS ABSOLUTE AUTO 3.14 K/mm3 (1.56-6.13); NEUTROPHILS PERCENT AUTO 58.9 % (34.0-71.1); PLATELET COUNT,PLT 204 K/mm3 (182-369); RED BLOOD CELL COUNT 3.81 M/mm3 (3.98-5.22); WHITE BLOOD CELL COUNT,WBC 5.32 K/mm3 (3.98-10.04)
[2022-11-07 06:20] LABS: A/G RATIO 0.6 (1-2); ALBUMIN 2.5 g/dl (3.4-5.0); BILIRUBIN TOTAL 0.4 mg/dL (0.2-1.0); BUN/CREATININE RATIO 28.3 (14-18); CALCIUM 9.1 mg/dL (8.5-10.1); CREATININE 3.5 mg/dL (0.55-1.02); EST CRCL DRUG DOSING (CG) 10.52 mL/min; MAGNESIUM 1.9 mg/dL (1.8-2.4); PROTEIN TOTAL,TP 6.7 g/dl (6.4-8.2)
[2022-11-07] MEDS: Insulin Lispro 100 Unit/ML 3 ML KwikPen SUBCUT SCH ×4 (07:47→22:14)
[2022-11-07] MEDS: Mycophenolate Mofetil 250 MG Cap PO SCH ×2 (07:48→19:24)
[2022-11-07] MEDS: Metoprolol Tartrate 50 MG Tab PO SCH ×2 (08:19→21:44)
[2022-11-07] MEDS: Apixaban 2.5 MG Tab PO SCH ×2 (08:20→21:45)
[2022-11-07] MEDS: Sodium Bicarbonate 650 MG Tab PO SCH ×2 (08:20→21:45)
[2022-11-07] MEDS: Cyanocobalamin (Vitamin B12) 1,000 MCG Tab PO SCH (12:17)
[2022-11-07] MEDS: Cetirizine 10 MG Tab PO SCH (19:24)
[2022-11-07] MEDS: SIMVASTATIN 40 MG PO SCH (21:45)
[2022-11-07] MEDS: Insulin Glargine,Human Rec. Analog 100 Units/ML 3 ML Pen SUBCUT SCH (21:46)
[2022-11-08] MEDS: Acetaminophen 325 MG Tab PO PRN ×2 (02:35→21:36)
[2022-11-08 05:25] LABS: BASOPHILS ABSOLUTE AUTO 0.01 K/mm3 (0.01-0.08); BASOPHILS PERCENT AUTO 0.2 % (0.1-1.2); EOSINOPHILS ABSOLUTE AUTO 0.09 K/mm3 (0.04-0.36); EOSINOPHILS PERCENT AUTO 1.5 (0.7-5.8); HEMATOCRIT 32.9 % (34.1-44.9); HEMOGLOBIN 10.4 gm/dl (11.2-15.7); IMMATURE GRAN ABSOLUTE AUTO 0.02 K/mm3 (0.00-0.10); IMMATURE GRAN PERCENT AUTO 0.3 % (<=1.0); LYMPHOCYTES ABSOLUTE AUTO 1.36 K/mm3 (1.18-3.74); LYMPHOCYTES PERCENT AUTO 22.8 % (19.3-51.7); MEAN CORPUSCULAR HEMOGLOBIN 28.1 pg (25.6-32.2); MEAN CORPUSCULAR HGB CONC 31.6 g/dl (32.2-35.5); MEAN CORPUSCULAR VOLUME 88.9 fl (79.4-94.8); MEAN PLATELET VOLUME 10.4 fl (9.4-12.3); MONOCYTES ABSOLUTE AUTO 0.52 K/mm3 (0.24-0.36); MONOCYTES PERCENT AUTO 8.7 % (4.7-12.5); NEUTROPHILS ABSOLUTE AUTO 3.97 K/mm3 (1.56-6.13); NEUTROPHILS PERCENT AUTO 66.5 % (34.0-71.1); PLATELET COUNT,PLT 194 K/mm3 (182-369); WHITE BLOOD CELL COUNT,WBC 5.97 K/mm3 (3.98-10.04)
[2022-11-08 05:48] LABS: A/G RATIO 0.6 (1-2); ALBUMIN 2.4 g/dl (3.4-5.0); ANION GAP 15.1 (5-15); BILIRUBIN TOTAL 0.6 mg/dL (0.2-1.0); BUN/CREATININE RATIO 24.5 (14-18); CALCIUM 8.9 mg/dL (8.5-10.1); CREATININE 3.3 mg/dL (0.55-1.02); EST CRCL DRUG DOSING (CG) 11.15 mL/min; MAGNESIUM 1.7 mg/dL (1.8-2.4); POTASSIUM,K 4.1 mEq/L (3.5-5.1); PROTEIN TOTAL,TP 6.5 g/dl (6.4-8.2)
[2022-11-08] MEDS: Insulin Lispro 100 Unit/ML 3 ML KwikPen SUBCUT SCH ×4 (07:25→20:58)
[2022-11-08] MEDS: Cyanocobalamin (Vitamin B12) 1,000 MCG Tab PO SCH (09:31)
[2022-11-08] MEDS: Metoprolol Tartrate 50 MG Tab PO SCH ×2 (09:31→20:59)
[2022-11-08] MEDS: Mycophenolate Mofetil 250 MG Cap PO SCH ×2 (09:31→20:04)
[2022-11-08] MEDS: Apixaban 2.5 MG Tab PO SCH ×2 (09:31→20:58)
[2022-11-08] MEDS: Sodium Bicarbonate 650 MG Tab PO SCH ×2 (09:33→21:00)
[2022-11-08] MEDS: Cetirizine 10 MG Tab PO SCH (20:04)
[2022-11-08] MEDS: Insulin Glargine,Human Rec. Analog 100 Units/ML 3 ML Pen SUBCUT SCH (20:58)
[2022-11-08] MEDS: SIMVASTATIN 40 MG PO SCH (21:00)
[2022-11-09 05:26] LABS: BASOPHILS ABSOLUTE AUTO 0.01 K/mm3 (0.01-0.08); BASOPHILS PERCENT AUTO 0.2 % (0.1-1.2); EOSINOPHILS ABSOLUTE AUTO 0.11 K/mm3 (0.04-0.36); HEMATOCRIT 34.9 % (34.1-44.9); HEMOGLOBIN 10.9 gm/dl (11.2-15.7); IMMATURE GRAN ABSOLUTE AUTO 0.02 K/mm3 (0.00-0.10); IMMATURE GRAN PERCENT AUTO 0.4 % (<=1.0); LYMPHOCYTES ABSOLUTE AUTO 1.64 K/mm3 (1.18-3.74); LYMPHOCYTES PERCENT AUTO 29.3 % (19.3-51.7); MEAN CORPUSCULAR HEMOGLOBIN 27.5 pg (25.6-32.2); MEAN CORPUSCULAR HGB CONC 31.2 g/dl (32.2-35.5); MEAN CORPUSCULAR VOLUME 88.1 fl (79.4-94.8); MEAN PLATELET VOLUME 10.7 fl (9.4-12.3); MONOCYTES ABSOLUTE AUTO 0.52 K/mm3 (0.24-0.36); MONOCYTES PERCENT AUTO 9.3 % (4.7-12.5); NEUTROPHILS PERCENT AUTO 58.8 % (34.0-71.1); PLATELET COUNT,PLT 199 K/mm3 (182-369); RED BLOOD CELL COUNT 3.96 M/mm3 (3.98-5.22)
[2022-11-09 05:58] LABS: A/G RATIO 0.5 (1-2); ALBUMIN 2.4 g/dl (3.4-5.0); ANION GAP 10.9 (5-15); BILIRUBIN TOTAL 0.6 mg/dL (0.2-1.0); CALCIUM 9.3 mg/dL (8.5-10.1); CREATININE 3.3 mg/dL (0.55-1.02); EST CRCL DRUG DOSING (CG) 11.15 mL/min; MAGNESIUM 1.8 mg/dL (1.8-2.4); POTASSIUM,K 3.9 mEq/L (3.5-5.1); PROTEIN TOTAL,TP 6.9 g/dl (6.4-8.2)
[2022-11-09] MEDS: Metoprolol Tartrate 50 MG Tab PO SCH ×2 (08:36→20:34)
[2022-11-09] MEDS: Calcitriol 0.25 MCG Cap PO SCH (08:37)
[2022-11-09] MEDS: Sodium Bicarbonate 650 MG Tab PO SCH ×2 (08:37→20:34)
[2022-11-09] MEDS: Apixaban 2.5 MG Tab PO SCH ×2 (08:38→20:34)
[2022-11-09] MEDS: Cyanocobalamin (Vitamin B12) 1,000 MCG Tab PO SCH (08:38)
[2022-11-09] MEDS: Insulin Lispro 100 Unit/ML 3 ML KwikPen SUBCUT SCH ×4 (08:39→20:33)
[2022-11-09] MEDS: Mycophenolate Mofetil 250 MG Cap PO SCH ×2 (08:46→18:11)
[2022-11-09] MEDS ORDERED: Bumetanide 1 MG Tab PO ONE (09:06)
[2022-11-09] MEDS ORDERED: hydrALAZINE 20 MG/ML SDV IVPUSH ONE ×2 (10:07→15:00)
[2022-11-09] MEDS: Bumetanide 1 MG Tab PO SCH (14:34)
[2022-11-09] MEDS: Cetirizine 10 MG Tab PO SCH (18:31)
[2022-11-09] MEDS: Acetaminophen 325 MG Tab PO PRN (20:35)
[2022-11-09] MEDS: Insulin Glargine,Human Rec. Analog 100 Units/ML 3 ML Pen SUBCUT SCH (20:44)
[2022-11-09] MEDS: SIMVASTATIN 40 MG PO SCH (20:45)
[2022-11-10] MEDS ORDERED: Bumetanide 1 MG Tab PO SCH (06:00)
[2022-11-10 08:28] LABS: BASOPHILS ABSOLUTE AUTO 0.01 K/mm3 (0.01-0.08); BASOPHILS PERCENT AUTO 0.2 % (0.1-1.2); EOSINOPHILS ABSOLUTE AUTO 0.07 K/mm3 (0.04-0.36); EOSINOPHILS PERCENT AUTO 1.1 (0.7-5.8); HEMATOCRIT 34.5 % (34.1-44.9); HEMOGLOBIN 10.8 gm/dl (11.2-15.7); IMMATURE GRAN ABSOLUTE AUTO 0.02 K/mm3 (0.00-0.10); IMMATURE GRAN PERCENT AUTO 0.3 % (<=1.0); LYMPHOCYTES ABSOLUTE AUTO 1.04 K/mm3 (1.18-3.74); LYMPHOCYTES PERCENT AUTO 16.7 % (19.3-51.7); MEAN CORPUSCULAR HEMOGLOBIN 27.6 pg (25.6-32.2); MEAN CORPUSCULAR HGB CONC 31.3 g/dl (32.2-35.5); MEAN CORPUSCULAR VOLUME 88.2 fl (79.4-94.8); MEAN PLATELET VOLUME 10.6 fl (9.4-12.3); MONOCYTES ABSOLUTE AUTO 0.58 K/mm3 (0.24-0.36); MONOCYTES PERCENT AUTO 9.3 % (4.7-12.5); NEUTROPHILS ABSOLUTE AUTO 4.51 K/mm3 (1.56-6.13); NEUTROPHILS PERCENT AUTO 72.4 % (34.0-71.1); PLATELET COUNT,PLT 208 K/mm3 (182-369); RED BLOOD CELL COUNT 3.91 M/mm3 (3.98-5.22); WHITE BLOOD CELL COUNT,WBC 6.23 K/mm3 (3.98-10.04)
[2022-11-10 08:46] LABS: ANION GAP 14.9 (5-15); BUN/CREATININE RATIO 20.6 (14-18); CALCIUM 9.4 mg/dL (8.5-10.1); CREATININE 3.4 mg/dL (0.55-1.02); EST CRCL DRUG DOSING (CG) 10.83 mL/min; MAGNESIUM 1.6 mg/dL (1.8-2.4); POTASSIUM,K 3.9 mEq/L (3.5-5.1)
[2022-11-10] MEDS: Insulin Lispro 100 Unit/ML 3 ML KwikPen SUBCUT SCH ×2 (08:52→11:30)
[2022-11-10] MEDS: Apixaban 2.5 MG Tab PO SCH (08:58)
[2022-11-10] MEDS: Cyanocobalamin (Vitamin B12) 1,000 MCG Tab PO SCH (08:58)
[2022-11-10] MEDS: Metoprolol Tartrate 50 MG Tab PO SCH (08:58)
[2022-11-10] MEDS: Sodium Bicarbonate 650 MG Tab PO SCH (08:58)
[2022-11-10] MEDS ORDERED: Magnesium Sulfate/Water 2 GM in Premix Bag 1 BAG IV ONE (09:30)
[2022-11-10] MEDS: Mycophenolate Mofetil 250 MG Cap PO SCH (09:54)
[2022-11-10] MEDS: Bumetanide 1 MG Tab PO SCH (13:37)
[2022-11-10 16:47] VITALS: BP 152/88; PULSE 73
[2022-11-11] MEDS ORDERED: Magnesium Oxide 400 MG Tab PO SCH (09:00)
[2022-11-11] MEDS ORDERED: Potassium Chloride 20 MEQ Tab.ER PO SCH (09:00)
== END 2022-11-10 16:42 | disposition home or self-care (01) | DRG 641 ==
LOC: JD.ED 09:01 → JD.MS 13:00
PROVIDERS: ADMIT Internal Medicine; ATTEND Internal Medicine
DX: R53.1 Weakness (principal); E86.0 Dehydration; D68.51 Activated protein C resistance; R55 Syncope and collapse; L12.0 Bullous pemphigoid; E87.1 Hypo-osmolality and hyponatremia; E78.5 Hyperlipidemia, unspecified; G47.33 Obstructive sleep apnea (adult) (pediatric); E87.6 Hypokalemia; I12.9 Hypertensive chronic kidney disease with stage 1 through stage 4 chronic kidney disease, or unspecified chronic kidney disease; L90.0 Lichen sclerosus et atrophicus; L21.9 Seborrheic dermatitis, unspecified; E11.22 Type 2 diabetes mellitus with diabetic chronic kidney disease; N18.9 Chronic kidney disease, unspecified; E66.9 Obesity, unspecified; E78.00 Pure hypercholesterolemia, unspecified; Z66 Do not resuscitate; M15.9 Polyosteoarthritis, unspecified; I25.10 Atherosclerotic heart disease of native coronary artery without angina pectoris; I25.2 Old myocardial infarction; M10.9 Gout, unspecified; K21.9 Gastro-esophageal reflux disease without esophagitis; Z79.4 Long term (current) use of insulin; Z79.01 Long term (current) use of anticoagulants; Z86.711 Personal history of pulmonary embolism; Z79.899 Other long term (current) drug therapy; Z95.0 Presence of cardiac pacemaker; Z88.5 Allergy status to narcotic agent; Z88.8 Allergy status to other drugs, medicaments and biological substances; Z91.041 Radiographic dye allergy status; Z91.040 Latex allergy status; Z90.49 Acquired absence of other specified parts of digestive tract; Z98.890 Other specified postprocedural states; Z90.721 Acquired absence of ovaries, unilateral; Z95.1 Presence of aortocoronary bypass graft; Z95.5 Presence of coronary angioplasty implant and graft
CPT/HCPCS: 36415; 70450; 70450-26; 71045; 71045-26; 80048; 80053; 81001; 82947; 83605; 83735; 83880; 84484; 85025; 85610; 85730; 86140; 93005; 93010; 93307; 94760; 96360; 96361; 97116-GP; 97162-GP; 97166-GO; 97530-GP; 97535-GO; 99223; 99232; 99233; 99239; 99285; 99285-25; A9270-GY; J0360; J1815; J1815-GY; J3475; J3480; J3490; J7030

== ENCOUNTER 2022-11-20 09:40 | Emergency (ER) | payer MEDICARE, OTHER ==
[2022-11-20 11:02] LABS: BASOPHILS ABSOLUTE AUTO 0.01 K/mm3 (0.01-0.08); BASOPHILS PERCENT AUTO 0.2 % (0.1-1.2); EOSINOPHILS ABSOLUTE AUTO 0.02 K/mm3 (0.04-0.36); EOSINOPHILS PERCENT AUTO 0.3 (0.7-5.8); HEMATOCRIT 30.6 % (34.1-44.9); HEMOGLOBIN 9.8 gm/dl (11.2-15.7); IMMATURE GRAN ABSOLUTE AUTO 0.03 K/mm3 (0.00-0.10); IMMATURE GRAN PERCENT AUTO 0.5 % (<=1.0); LYMPHOCYTES ABSOLUTE AUTO 0.67 K/mm3 (1.18-3.74); LYMPHOCYTES PERCENT AUTO 11.2 % (19.3-51.7); MEAN CORPUSCULAR HEMOGLOBIN 27.2 pg (25.6-32.2); MEAN PLATELET VOLUME 9.8 fl (9.4-12.3); MONOCYTES ABSOLUTE AUTO 0.55 K/mm3 (0.24-0.36); MONOCYTES PERCENT AUTO 9.2 % (4.7-12.5); NEUTROPHILS PERCENT AUTO 78.6 % (34.0-71.1); PLATELET COUNT,PLT 268 K/mm3 (182-369); WHITE BLOOD CELL COUNT,WBC 5.98 K/mm3 (3.98-10.04)
[2022-11-20 11:23] LABS: INR 1.12; PROTHROMBIN TIME 11.9 SECONDS (9.7-12.0)
[2022-11-20 11:24] LABS: PTT,PARTIAL THROMBOPLSTIN TIME 30.7 SECONDS (21.7-31.4)
[2022-11-20 11:52] LABS: A/G RATIO 0.5 (1-2); ALANINE AMINOTRANSFERASE,ALT 44 U/L (14-59); ALBUMIN 2.4 g/dl (3.4-5.0); ALKALINE PHOSPHATASE 248 U/L (46-116); ANION GAP 16.6 (5-15); ASPARTATE AMNIOTRANSFERASE,AST 42 U/L (15-37); BILIRUBIN TOTAL 0.7 mg/dL (0.2-1.0); BUN/CREATININE RATIO 23.4 (14-18); CALCIUM 9.1 mg/dL (8.5-10.1); CARBON DIOXIDE,CO2 22 mEq/L (21-32); CHLORIDE,CL 89 mEq/L (98-107); CREATININE 4.4 mg/dL (0.55-1.02); ESTIMATED GFR 9 mL/min (>60); GLUCOSE RANDOM 207 mg/dL (70-99); POTASSIUM,K 3.6 mEq/L (3.5-5.1); SODIUM,NA 124 mEq/L (136-145); TROPONIN I HIGH SENSITIVITY 43 pg/mL (<=51)
[2022-11-20 11:57] LABS: BLOOD UREA NITROGEN,BUN 103 mg/dL (7-18)
[2022-11-20] MEDS ORDERED: Metoprolol Tartrate 25 MG Tab PO ONE (12:23)
[2022-11-20] MEDS ORDERED: Furosemide 100 MG/10 ML SDV IVPUSH ONE (15:52)
[2022-11-20 17:41] VITALS: BP 195/69; PULSE 65
== END 2022-11-20 17:41 ==
LOC: JD.ED 09:40
DX: I13.2 Hypertensive heart and chronic kidney disease with heart failure and with stage 5 chronic kidney disease, or end stage renal disease (principal); E11.22 Type 2 diabetes mellitus with diabetic chronic kidney disease; N18.6 End stage renal disease; I50.9 Heart failure, unspecified; R09.02 Hypoxemia; I25.10 Atherosclerotic heart disease of native coronary artery without angina pectoris; E78.00 Pure hypercholesterolemia, unspecified; I25.2 Old myocardial infarction; M19.90 Unspecified osteoarthritis, unspecified site; E66.9 Obesity, unspecified; Z86.16 Personal history of COVID-19; Z88.8 Allergy status to other drugs, medicaments and biological substances; Z91.040 Latex allergy status; Z88.5 Allergy status to narcotic agent; Z79.4 Long term (current) use of insulin; Z79.01 Long term (current) use of anticoagulants; Z79.899 Other long term (current) drug therapy
CPT/HCPCS: 36415; 71045; 80053; 83735; 83880; 84484; 85025; 85610; 85730; 96374; 99285; A9270; J1940